=== PATIENT | female | born 1955 | race Caucasian/White ===

== ENCOUNTER 2018-08-23 02:16 | Inpatient (IN) ==
[2018-08-23] MEDS ORDERED: IOPAMIDOL 100 ML BOTTLE IV ONE (02:17)
[2018-08-23] MEDS ORDERED: LACTATED RINGERS 1,000 ML IV ONE (02:25)
[2018-08-23] MEDS ORDERED: ONDANSETRON 4 MG/2 ML VIAL IV ONE (02:25)
[2018-08-23] MEDS: HYDROmorphone 2 MG/ML VIAL IV PRN ×8 (03:05→22:54)
[2018-08-23 03:35] LABS: Basophils # (Auto) 0 K/mcL (0.0-0.3); Basophils % (Auto) 0 % (0.0-2.0); Eosinophils # (Auto) 0.1 K/mcL (0.0-0.7); Eosinophils % (Auto) 0.6 % (0.0-7.0); Granulocytes % (Auto) 82.3 % (38.0-78.0); Lymphocytes # (Auto) 1.8 K/mcL (1.5-4.8); Lymphocytes % (Auto) 12.1 % (15.5-49.0); Mean Cell Volume 81.4 fL (80.0-100.0); Mean Corpuscular Hemoglobin 26.1 pg (26.0-34.0); Monocytes # (Auto) 0.8 K/mcL (0.1-0.9); Platelet Count 397 K/mcL (140-440); Red Cell Distribution Width 15.6 % (11.5-14.5)
[2018-08-23 03:52] LABS: ALT/SGPT 287 U/l (0-40); Albumin 3.5 gm/dL (3.2-5.2); Albumin/Globulin Ratio 0.9 (1.0-2.3); Alkaline Phosphatase 730 U/L (39-117); Blood Urea Nitrogen 8 mg/dl (6-20)
[2018-08-23 05:04] LABS: Appearance,Urine HAZY; Bacteria,Urine FEW /hpf (0); Bilirubin,Urine NEG (NEG); Color,Urine YELLOW; Glucose,Urine (UA) NEGATIVE (NEG); Leukocyte Esterase,Urine NEG /uL (NEG); Protein,Urine NEG (NEG); Specific Gravity,Urine 1.008 (1.000-1.035); Urine Blood NEG mg/dL (<0.03); Urine RBC 2 /hpf (0-1); Urine Squamous Epithelial Cell < 1 /hpf (0-4); Urine Transitional Epi Cells < 1 /hpf (0-2); Urine WBC < 1 /hpf (0-4); Urobilinogen,Urine NEG (NEG)
--- NOTE | 2018-08-23 06:32 | Emergency Department Note ---
Abdominal Pain HPI - General Chief Complaint: Abdominal Pain Stated Complaint: abdominal pain Time Seen by Provider: 08/23/18 02:56 Source: patient Mode of arrival: ambulatory Limitations: no limitations - History of Present Illness HPI Narrative: This patient started taking doxycycline for a diagnosis of pneumonia last Monday. Since that time she has had some abdominal discomfort and bloating and thought maybe she was constipated but her discomfort really is in the epigastric upper abdominal area. Slight nausea. She thinks that the antibiotic may be upsetting her stomach. - Related Data Home Medications Medication Instructions Recorded Confirmed Loratadine [Claritin] 10 mg PO DAILY 07/12/16 07/12/16 lorazepam 1 mg tablet 0.5 mg PO BID-TID PRN 08/17/18 08/17/18 omeprazole 20 mg capsule,delayed 20 mg PO QDAY 08/17/18 08/17/18 release trazodone 50 mg tablet 50 mg PO QDAY 08/17/18 08/17/18 Previous Rx's Medication Instructions Recorded doxycycline hyclate 100 mg tablet 100 mg PO bid 10 Days #20 tab 08/17/18 Allergies Allergy/AdvReac Type Severity Reaction Status Date / Time Sulfa (Sulfonamide Allergy Intermediate VOMITING Verified 08/23/18 02:19 Antibiotics) [SULFA (SULFONAMIDE ANTIBIOTICS)] Review of Systems All systems ED: reviewed and negative except as stated. Abdominal Pain PMH - Past Medical History [facility] Narrative: Medical History (Last Reviewed 08/17/18 @ 15:24 by KAZ Jones) Bee sting reaction (Acute) Cellulitis (Acute) Medical history: Reports: other (seasonal allergies) - Social History Smoking status: Never smoker Physical Exam Limitations: no limitations General appearance: alert Head: atraumatic Eye: Present: normal appearance ENT: normal exam Neck: Present: normal inspection Chest: Present: normal inspection Respiratory: Present: normal lung sounds bilaterally Cardiovascular: Present: regular rate, normal rhythm, normal heart sounds Abdominal: Present: soft, tenderness, normal bowel sounds. Absent: distention, guarding, rebound, rigidity Abdominal tenderness: Present: epigastrium Neurological: Present: alert Psychiatric: Present: normal affect, normal mood Skin: Present: warm, dry, intact Course Vital Signs Temperature 97.0 F 08/23/18 02:16 Pulse Rate 87 08/23/18 02:16 Respiratory Rate 18 08/23/18 02:16 Blood Pressure 146/72 08/23/18 02:16 Pulse Oximetry (%) 98 08/23/18 02:16 Temperature 97.0 F 08/23/18 02:16 Pulse Rate 74 08/23/18 06:18 Respiratory Rate 18 08/23/18 02:16 Blood Pressure 144/78 08/23/18 06:18 Pulse Oximetry (%) 100 08/23/18 06:18 Abdominal Pain - MDM Narrative Medical decision making narrative: This patient has gallstone pancreatitis with severe cholecystitis and evidence of cholangitis with a common bile duct stone. I discussed the case with Dr. Lara who will do ERCP later this afternoon. Dr. Hutchinson will admit the patient. Dr. Reyes a surgeon will consult. Patient is given Levaquin and Zosyn. Also fluid hydration. She is reasonably comfortable. Vital signs have been stable. She will be admitted to the medicine floor. - Lab Data Lab results reviewed: Yes I reviewed the patient's lab results. Result diagrams: 08/23/18 02:50 08/23/18 02:50 Lab Results 08/23/18 08/23/18 08/23/18 Range/Units 02:50 02:50 02:50 WBC 15.2 H (4.5-11.0) K/mcL RBC 4.60 (4.00-5.20) M/mcL Hgb 12.0 (12.0-15.0) g/dL Hct 37.4 (36.0-48.0) % MCV 81.4 (80.0-100.0) fL MCH 26.1 (26.0-34.0) pg MCHC 32.0 (31.0-36.0) g/dL RDW 15.6 H (11.5-14.5) % Plt Count 397 (140-440) K/mcL MPV 9.3 (7.4-10.4) fL Gran % 82.3 H (38.0-78.0) % Lymph % (Auto) 12.1 L (15.5-49.0) % [place] % (Auto) 5.0 (1.0-12.0) % Eos % (Auto) 0.6 (0.0-7.0) % Baso % (Auto) 0 (0.0-2.0) % Gran # 12.5 H (1.8-8.0) K/mcL Lymph # (Auto) 1.8 (1.5-4.8) K/mcL [place] # (Auto) 0.8 (0.1-0.9) K/mcL Eos # (Auto) 0.1 (0.0-0.7) K/mcL Baso # (Auto) 0 (0.0-0.3) K/mcL Sodium 139 (133-145) mmol/L Potassium 4.0 (3.3-5.1) mmol/L Chloride 100 (96-108) mmol/L Carbon Dioxide 24 (22-30) mmol/L Anion Gap 15.0 (8-16) BUN 8 (6-20) mg/dl Creatinine 0.7 (0.6-1.1) mg/dl GFR Calculation 94 Glucose 156 H (70-105) mg/dL Calcium 8.9 (8.6-10.4) mg/dl Total Bilirubin 1.8 H (0.0-1.0) mg/dL AST 260 H (0-37) U/l ALT 287 H (0-40) U/l Alkaline Phosphatase 730 H (39-117) U/L Total Protein 7.2 (5.9-8.4) gm/dL Albumin 3.5 (3.2-5.2) gm/dL Globulin 3.7 (2.2-3.7) gm/dL Albumin/Globulin Ratio 0.9 L (1.0-2.3) Lipase 94661 H (7-60) U/L Urine Color Urine Appearance Urine pH (5.0-9.0) Ur Specific [place] (1.000-1.035) Urine Protein (NEG) mg/dL Urine Glucose (UA) (NEG) mg/dL Urine Ketones (NEG) mg/dL Urine Occult Blood (<0.03) mg/dL Urine Nitrate (NEG) Urine Bilirubin (NEG) mg/dL Urine Urobilinogen (NEG) mg/dL Ur Leukocyte Esterase (NEG) /uL Urine RBC (0-1) /hpf Urine WBC (0-4) /hpf Ur Squamous Epith Cells (0-4) /hpf Ur Transition Epith Cell (0-2) /hpf Urine Bacteria (0) /hpf Ur Culture Indicated? 08/23/18 Range/Units 04:22 WBC (4.5-11.0) K/mcL RBC (4.00-5.20) M/mcL Hgb (12.0-15.0) g/dL Hct (36.0-48.0) % MCV (80.0-100.0) fL MCH (26.0-34.0) pg MCHC (31.0-36.0) g/dL RDW (11.5-14.5) % Plt Count (140-440) K/mcL MPV (7.4-10.4) fL Gran % (38.0-78.0) % Lymph % (Auto) (15.5-49.0) % [place] % (Auto) (1.0-12.0) % Eos % (Auto) (0.0-7.0) % Baso % (Auto) (0.0-2.0) % Gran # (1.8-8.0) K/mcL Lymph # (Auto) (1.5-4.8) K/mcL [place] # (Auto) (0.1-0.9) K/mcL Eos # (Auto) (0.0-0.7) K/mcL Baso # (Auto) (0.0-0.3) K/mcL Sodium (133-145) mmol/L Potassium (3.3-5.1) mmol/L Chloride (96-108) mmol/L Carbon Dioxide (22-30) mmol/L Anion Gap (8-16) BUN (6-20) mg/dl Creatinine (0.6-1.1) mg/dl GFR Calculation Glucose (70-105) mg/dL Calcium (8.6-10.4) mg/dl Total Bilirubin (0.0-1.0) mg/dL AST (0-37) U/l ALT (0-40) U/l Alkaline Phosphatase (39-117) U/L Total Protein (5.9-8.4) gm/dL Albumin (3.2-5.2) gm/dL Globulin (2.2-3.7) gm/dL Albumin/Globulin Ratio (1.0-2.3) Lipase (7-60) U/L Urine Color Yellow Urine Appearance Hazy Urine pH 7.0 (5.0-9.0) Ur Specific [place] 1.008 (1.000-1.035) Urine Protein Neg (NEG) mg/dL Urine Glucose (UA) Negative (NEG) mg/dL Urine Ketones 5/tr A (NEG) mg/dL Urine Occult Blood Neg (<0.03) mg/dL Urine Nitrate Neg (NEG) Urine Bilirubin Neg (NEG) mg/dL Urine Urobilinogen Neg (NEG) mg/dL Ur Leukocyte Esterase Neg (NEG) /uL Urine RBC 2 H (0-1) /hpf Urine WBC < 1 (0-4) /hpf Ur Squamous Epith Cells < 1 (0-4) /hpf Ur Transition Epith Cell < 1 (0-2) /hpf Urine Bacteria Few A (0) /hpf Ur Culture Indicated? Yes - Radiology Data Radiology results reviewed: Yes I reviewed the patient's radiology results. Disposition Pt seen by PUBLIC RELATIONS COORDINATOR/PA only: No Clinical Impression: Gallstone pancreatitis, Acute cholecystitis, Cholangitis, Common bile duct stone Disposition: Xfer As Inpt ([facility]) Condition: Good Referrals: Tere Edouard [Primary Care Provider] - Time of Disposition: 07:01
[2018-08-23] MEDS ORDERED: PIPERACILLIN SODIUM/TAZOBACTAM 3.375 GM in DEXTROSE 5% IN WATER 50 ML IV ONE (06:33)
[2018-08-23] MEDS ORDERED: LEVOFLOXACIN 750 MG/150 ML BAG IV ONE (06:33)
--- NOTE | 2018-08-23 08:02 | Internal Med History&Physical ---
Medical - H&P: HPI Patient information: Note initiated : 08/23/18 at 8:00 am Service Date, if different from initiated Date: [] Patient: Ciara Del Toro 62 y/o F admitted on for Abd Pain. Chief Complaint: [] History of present illness: Ms. Del Toro is a 62 year old F with h/o anxiety, Ca breast, presents to the ER with complaints of abdominal pain. The patients symptoms started last monday, with fever, nausea and vomiting, decreased appetite. The patient nausea and vomiting somewhat improved but her food aversion was persistent. She was seen last Monday, in the urgent care setting for fever, had a Chest x ray done, and was noted to have possible right basilar infiltrate vs atelectasis. The patient was started on doxycycline. The patients symptoms worsened after the initiation of antibiotics. The patient had nausea, vmoiting, epigastric distress since initiation which has progressively worsened since then. She attributed the worsening of symptoms to the initiation of antibiotics The patient has had decreased po intake and had some weakness and dizziness. The patient last night ate supper and her pain became more severe, and did not subside, she eventually came to the ER for further management. In the ER the patient was noted to be afebrile 97, HR 72, BP 138/70, 99 on RA WBC 15, Hb 12, K 4.0, Creat 0.8, Glucose 156 T nette 1.8, AST 287, ALT 260, Alk phos 730, LIpase [id number] The patient had a CT done which shows dilated cbc, cholecystitis. official report pending. Patient is being admitted to the hospital for acute cholangitis, acute pancreatitis. All systems: reviewed and no additional remarkable complaints except as stated ( as per HPI rest neg) Medical - H&P: PMH Medical history: Medical History (Last Reviewed 08/17/18 @ 15:24 by KAZ Jones) Bee sting reaction (Acute) Cellulitis (Acute) anxiety ca breast Surgical history: hystrectomy mastectomy tonsillectomy port placement/ removal Pertinent family history: mother/father with DM Social history: social etoh in past denies tobacco or substance abuse. Medical - H&P: Meds Home Medications Medication Instructions Recorded Confirmed Type Loratadine [Claritin] 10 mg PO DAILY 07/12/16 08/23/18 History doxycycline hyclate 100 mg tablet 100 mg PO bid 10 Days #20 tab 08/17/18 Rx lorazepam 1 mg tablet 0.5 mg PO BID-TID PRN 08/17/18 08/23/18 History omeprazole 20 mg capsule,delayed 20 mg PO QDAY 08/17/18 08/23/18 History release trazodone 50 mg tablet 50 mg PO QDAY 08/17/18 08/23/18 History Allergies Allergy/AdvReac Type Severity Reaction Status Date / Time Sulfa (Sulfonamide Allergy Intermediate VOMITING Verified 08/23/18 02:19 Antibiotics) [SULFA (SULFONAMIDE ANTIBIOTICS)] Medical - H&P: Exam - Constitutional Vitals: Temp Pulse Resp BP Pulse Ox 97.0 F 96 H 18 160/81 100 08/23/18 02:16 08/23/18 07:30 08/23/18 02:16 08/23/18 07:31 08/23/18 07:30 Exam: GENERAL: The patient is a well-developed, well-nourished in no apparent distress. Is alert and oriented x3. VITAL SIGNS: Reviewed and as noted elsewhere. HEENT: Head is normocephalic and atraumatic. Extraocular muscles are intact. Pupils are equal, round, and reactive to light. Nares appeared normal. Mouth appears any without lesions. Mucous membranes are moist. NECK: Normal to inspection, Supple, No lymphadenopathy or thyromegaly. LUNGS: Air entry equal on both sides, no wheezing, crackles or rhonchi noted. No accessory muscles of respiration HEART: Regular rate and rhythm normal, S1 and S2 heard, no Gallop, S3 or Rub Noted, No Gross murmur heard. ABDOMEN: Soft, present epigastric tenderness, also RUQ tenderness, nondistended. Positive bowel sounds. No hepatosplenomegaly was noted. EXTREMITIES: No cyanosis, clubbing, rash, lesions or edema. NEUROLOGIC: Cranial nerves II through XII are grossly intact. Motor and Sensory System Grossly Intact PSYCHIATRIC: Normal affect, Normal Mood. Appropriate Behavior. SKIN: No ulceration or wounds noted, No jaundice, No rash noted. Medical - H&P: Reslt - Labs CBC & Chem 7: 08/23/18 02:50 08/23/18 02:50 Labs: Short CBC 08/23/18 Range/Units 02:50 WBC 15.2 H (4.5-11.0) K/mcL Hgb 12.0 (12.0-15.0) g/dL Hct 37.4 (36.0-48.0) % Plt Count 397 (140-440) K/mcL BMP 08/23/18 02:50 Sodium 139 Potassium 4.0 Chloride 100 Carbon Dioxide 24 BUN 8 Creatinine 0.7 Glucose 156 H Calcium 8.9 Liver Function 08/23/18 Range/Units 02:50 Total Bilirubin 1.8 H (0.0-1.0) mg/dL AST 260 H (0-37) U/l ALT 287 H (0-40) U/l Alkaline Phosphatase 730 H (39-117) U/L Albumin 3.5 (3.2-5.2) gm/dL Urine 08/23/18 Range/Units 04:22 Urine Color Yellow Urine Appearance Hazy Urine pH 7.0 (5.0-9.0) Ur Specific [place] 1.008 (1.000-1.035) Urine Protein Neg (NEG) mg/dL Urine Glucose (UA) Negative (NEG) mg/dL Medical - H&P: A/P - Narrative A/P Narrative: A/P Acute Cholangitis Acute cholecystitis Acute pancreatitis Anxiety CA breast/ s/p chemo Plan admit to med sug IV zosyn GI and SUrgery consulted, Planned ERCP this afternoon IV fluids NPO for now IV dilaudid for pain management trend labs DVT hep sq Diet npo Full code.
--- NOTE | 2018-08-23 08:04 | Cat Scan Report ---
CLINICAL INFORMATION: Abdominal pain with elevated serum lipase level COMPARISON: None. TECHNIQUE: Following injection of intravenous contrast the patient was scanned during the portal venous phase from the diaphragm through the symphysis pubis. Sagittal and coronal reformats were created.. The radiation exposure was limited using dose reduction technology FINDINGS: Right breast is surgically absent. There is scar tissue in the underlying 6 no pulmonary masses seen. There is moderate size hiatus hernia. Liver is normal in size. There is moderate dilatation of the intra and extrahepatic bile ducts. The common hepatic duct measures up to 11 mm. There may be a 1 mm stone at the ampulla. The gallbladder wall is abnormally thickened and edematous. It measures up to 8 mm. There are several small stones in the neck of the gallbladder. No abscess is present and there is no ascites. The pancreas is normal without evidence of inflammation in the duct is nondilated. There is a 1 cm duodenal diverticulum along the medial side of the second portion, contiguous with the distal common bile duct. This is not causing mass effect upon the duct. The spleen, adrenals and kidneys are normal. The bowel gas pattern is normal. There is no diverticulitis obstruction or ileus. The appendix is not clearly identified. The uterus is surgically absent. Neither ovary is identified. Severe disc space narrowing is present at L4-5 and L5-S1. There are posterior bulges and spurs at those two levels and gas and nucleus pulposus due to degeneration. IMPRESSION: Cholelithiasis and cholecystitis 1 mm stone at the ampulla, causing obstruction of the bile ducts. Normal pancreas No evidence of metastasis Interpreted and Authenticated by: Dwayne Delarosa 08/23/18
--- NOTE | 2018-08-23 08:27 | XRay Report ---
HISTORY: Abdominal pain and constipation Right diaphragm is mildly elevated. No free intra-abdominal air is present. The bowel gas pattern is normal and there is no evidence of fecal impaction. No kidney stone is seen. IMPRESSION: Normal exam Interpreted and Authenticated by: Dwayne Delarosa 08/23/18
[2018-08-23] MEDS ORDERED: NALOXONE HCL 0.4 MG/ML VIAL IV PRN (08:48)
[2018-08-23] MEDS ORDERED: oxyCODONE/APAP 5/325MG TABLET PO PRN (08:48)
[2018-08-23] MEDS ORDERED: HEPARIN 5,000 UNIT/ML VIAL SQ SCH (09:00)
[2018-08-23] MEDS: FAMOTIDINE/PF 20 MG/2 ML VIAL IV SCH ×2 (09:22→20:13)
[2018-08-23] MEDS: DEXTROSE 5%-1/2NS W/20MEQ KCL 1,000 ML IV SCH ×2 (10:34→21:56)
[2018-08-23] MEDS: ONDANSETRON 4 MG/2 ML VIAL IV PRN ×4 (10:47→23:47)
[2018-08-23 10:59] LABS: Amylase 2249 U/L (28-100)
[2018-08-23 11:00] LABS: Lipase 4640 U/L (7-60)
[2018-08-23] MEDS: PIPERACILLIN SODIUM/TAZOBACTAM 3.375 GM in DEXTROSE 5% IN WATER 50 ML IV SCH ×3 (11:38→23:45)
[2018-08-23] MEDS: 0.9 % SODIUM CHLORIDE 10 ML SYRINGE IV SCH ×2 (13:16→20:13)
[2018-08-23] MEDS ORDERED: PROPOFOL 200 MG/20 ML VIAL IV ONE (14:24)
[2018-08-23] MEDS ORDERED: MIDAZOLAM 2 MG/2 ML VIAL IV ONE (14:25)
[2018-08-23] MEDS ORDERED: PROPOFOL 20 ML IV ONE ×2 (16:46)
[2018-08-23] MEDS ORDERED: MIDAZOLAM 2 MG/2 ML VIAL ONE (16:46)
[2018-08-23] MEDS ORDERED: GLUCAGON,HUMAN RECOMBINANT 1 MG VIAL IV ONE (17:15)
[2018-08-23] MEDS ORDERED: IOPAMIDOL 100 ML BOTTLE IJ ONE (17:35)
--- NOTE | 2018-08-23 20:07 | Consultation ---
DATE OF CONSULTATION: 08/23/2018 CHIEF COMPLAINT: Ms. Ozuna is seen in consultation at the request of Dr. Holm in the ER for cholelithiasis and choledocholithiasis. HISTORY OF PRESENT ILLNESS: Ms. Ozuna is a 62-year-old woman, who presented to the emergency department with complaints of abdominal pain that has been progressive throughout the week. The patient states that recently she was diagnosed with pneumonia last Monday and was started on doxycycline. Shortly after starting that medication, she developed some nausea and thought this was related to the antibiotics. This sense of nausea seemed to persist, and she started to have some discomfort in her mid epigastric area which seemed to progress throughout the week. By last night, she found that her pain was quite severe, which she rated as a 9.5 out of 10 in severity. She primarily was having pain in the midepigastric area and states that she could not find a comfortable position no matter how much she tried. She did have 5 episodes of emesis which was first consisting of dinner that she just ate last night and then subsequently just clear liquid. Throughout the week when she was starting to develop this discomfort, she noted that eating made the pain worse, and she has not had much to eat over the past week. She also reports having an episode of dark urine about a week ago. She denies any episodes of diarrhea. She denies having pain like this before. She does have a history of Schatzki's ring and a hiatal hernia diagnosed in January during evaluation for dysphagia, but no pain like this previously. PAST MEDICAL HISTORY: Significant for: 1. Stage III breast carcinoma diagnosed 2 years ago, treated with a right modified radical mastectomy and chemotherapy. 2. Hiatal hernia and Schatzki's ring as per above. 3. Seasonal allergies. 4. History of shingles. REVIEW OF SYSTEMS: CONSTITUTIONAL: She denies fever or chills. CARDIOVASCULAR: Denies chest pain or pressure at rest or with exertion. PULMONARY: Recent diagnosis of pneumonia as per HPI. No current cough noted. ENDOCRINE: Denies any history of diabetes mellitus or thyroid disease. HEMATOLOGIC: Denies any history of DVT or PE. She reports a history of a prior blood transfusion at the time of hysterectomy which was performed for fibroids. The patient denies any history of anesthetic complications. FAMILY HISTORY: Significant for myocardial infarction and stroke in her father at age 47. She also reports family history of diabetes mellitus in both parents. ALLERGIES: SULFA, ADHESIVE FROM TAPE, BEE STINGS. SOCIAL HISTORY: The patient denies tobacco use. Denies any illegal or recreational drug use. Reports prior occasional alcohol intake. PHYSICAL EXAMINATION: VITAL SIGNS: Temperature 97.0, pulse 96, respirations 18, blood pressure 160/81, O2 saturations 100% on room air. GENERAL: Ms. Del Toro is a well-developed, well-nourished woman, who appears her stated age in no distress. HEENT: Head is normocephalic. Sclerae are white. Mucous membranes are moist. CHEST: Breath sounds are clear to auscultation bilaterally. No rales or wheezes are heard in the upper or lower cooper. No use of accessory respiratory muscles. CARDIOVASCULAR: Reveals regular rate and rhythm. ABDOMEN: Soft, moderately obese. There is tenderness in the right upper abdomen and in the midepigastric area. The patient has been medicated for pain prior to this evaluation. No rebound tenderness or guarding noted on exam. EXTREMITIES: No cyanosis or edema. NEUROLOGIC: The patient is alert and oriented to person, place, time, and circumstance. Her cranial nerves II-XII are grossly intact. LABS AND STUDIES: CBC drawn in the Emergency Department shows white blood cell count elevated at 15.2, hemoglobin is 12.0, hematocrit is 37.4, and platelets are 397. There is a left shift of 82.3% granulocytes. Serum chemistry shows sodium of 139, potassium 4.0, chloride 100, CO2 of 24, BUN 8, creatinine 0.7, glucose 156, total bilirubin is elevated at 1.8, AST 260, ALT 287, alkaline phosphatase 730. Albumin 3.5. Lipase is elevated at 12,100. A CT scan of the abdomen and pelvis was performed in the Emergency Department. I reviewed the images and reports from the scan. Significant findings include moderate dilatation of the intra and extrahepatic bile ducts with the common hepatic duct measuring up to 11 mm. There is thought to be a 1 mm stone at the ampulla. Gallbladder wall was abnormally thickened and edematous. It measures up to 8 mm. Multiple stones in the neck of the gallbladder are noted. ASSESSMENT AND PLAN: Gallstone pancreatitis and choledocholithiasis. The patient is admitted to medicine service, and GI consultation has been obtained for consideration of ERCP. Once pancreatitis has resolved, we will discuss cholecystectomy for management of the symptomatic gallstones. RC:wan Job ID: [id number] Doc ID: [id number] Leeann Reyes MD
[2018-08-24] MEDS: DEXTROSE 5%-1/2NS W/20MEQ KCL 1,000 ML IV SCH ×3 (01:39→22:18)
[2018-08-24] MEDS: 0.9 % SODIUM CHLORIDE 10 ML SYRINGE IV SCH ×3 (05:49→21:28)
[2018-08-24] MEDS: PIPERACILLIN SODIUM/TAZOBACTAM 3.375 GM in DEXTROSE 5% IN WATER 50 ML IV SCH ×4 (05:49→23:46)
[2018-08-24] MEDS: HYDROmorphone 2 MG/ML VIAL IV PRN ×3 (05:55→21:27)
[2018-08-24 06:38] LABS: Basophils # (Auto) 0 K/mcL (0.0-0.3); Basophils % (Auto) 0 % (0.0-2.0); Eosinophils # (Auto) 0 K/mcL (0.0-0.7); Eosinophils % (Auto) 0.3 % (0.0-7.0); Granulocytes % (Auto) 80.5 % (38.0-78.0); Lymphocytes # (Auto) 1.6 K/mcL (1.5-4.8); Lymphocytes % (Auto) 11.7 % (15.5-49.0); Mean Cell Volume 82.5 fL (80.0-100.0); Mean Corpuscular HGB Conc 32.3 g/dL (31.0-36.0); Mean Corpuscular Hemoglobin 26.7 pg (26.0-34.0); Monocytes % (Auto) 7.5 % (1.0-12.0); Platelet Count 389 K/mcL (140-440); RBC 4.46 M/mcL (4.00-5.20)
[2018-08-24 06:39] LABS: Amylase 1122 U/L (28-100)
[2018-08-24 06:52] LABS: ALT/SGPT 332 U/l (0-40); Albumin 3.2 gm/dL (3.2-5.2); Albumin/Globulin Ratio 0.9 (1.0-2.3); Alkaline Phosphatase 813 U/L (39-117); Bilirubin,Direct 2.4 mg/dL (0.0-0.3); Blood Urea Nitrogen 7 mg/dl (6-20); Gamma Glutamyl Transpeptidase 346 U/L (5-36); Lipase 1429 U/L (7-60); Uric Acid 1.3 mg/dL (2.5-8.0)
--- NOTE | 2018-08-24 07:44 | Operative Note ---
DATE OF OPERATION: 08/23/2018 PROCEDURE: ERCP with sphincterotomy and balloon extraction of small stone fragments. SENIOR LITIGATION PARALEGAL AND MANAGER APPLICATION DEVELOPMENT: Lio Vallecillo MD ANESTHETIC USED: Propofol 160 mg IV, Versed 2 mg IV, glucagon 1 mg IV. PREOPERATIVE DIAGNOSIS: A 62-year-old white female known to me I believe from having reflux or a Schatzki's ring dilated several months or maybe a year ago. She has a history of breast cancer as well. In the last 10 days; however, she has been having intermittent abdominal pain and fever. This has been alternately attributed to, at first a flu and then later her postprandial abdominal pain was being attributed to use of antibiotics, I believe doxycycline. Finally; however, during the early intervention school psychologist hours earlier today, patient came to the emergency room with severe abdominal pain. She was found to have elevated liver chemistries and pancreatitis; also CAT scan findings of gallstones and even very small common bile duct stone or stones. POSTOPERATIVE DIAGNOSIS: Tiny stone fragments, removed from common bile duct via sphincterotomy as described below. INFORMED CONSENT: Prior to the procedure the patient provided her own informed consent. The patient was evaluated and considered medically fit for endoscopy. DESCRIPTION OF PROCEDURE: With the patient in the semi-prone position under a fluoroscope, a side-viewing duodenoscope was advanced via the mouth to the esophagus under direct vision. The scope was advanced without difficulty to the second portion of the duodenum where a normal-appearing ampulla was identified. I will say, however, that the ampulla did appear maybe to be a little bit bulging. There was no purulent material coming through the ampullary orifice. Selective cannulation of the common bile duct was achieved immediately by a wire-guided technique. Cholangiogram then was performed. This shows that the cystic duct is at least partially patent. The common bile duct does not appear to be enlarged or dilated. I was suspicious of a small filling defect or two at the distal common bile duct. This was certainly not obvious but with the CAT scan findings I decided to perform a small sphincterotomy. This was done with a little bit of bleeding, probably 2 to 3 mL of blood total. I used 9 through 12 mm balloon inflated to 10 mm but not at the sphincterotomy site and the bleeding stopped. I swept the common bile duct with a 12 mm balloon and only little fragments of stones were delivered to the small bowel. I swept the duct two more times and did not see any further convincing evidence of any remaining fragments. An occlusion cholangiogram was obtained and this does not demonstrate any obvious retained filling defects. COMPLICATIONS: None immediate. RECOMMENDATIONS: Would proceed to cholecystectomy when the pancreatitis subsides. For now, continue treatment for pancreatitis with IV fluids, pain meds, and nausea medicine as needed, etc. [email or web address] Job ID: [id number] Doc ID: [id number] Lio HORNE
--- NOTE | 2018-08-24 08:55 | General Surgery Progress Note ---
Surgical - Auxillary Note - Subjective Patient Information: Note initiated : 08/24/18 at 8:55 am Service Date, if different from initiated Date: [] Patient: Ciara Del Toro 62 y/o F admitted on 08/23/18 for Abd Pain. Chief Complaint: [] Patient resting in bed. Reports pain in mid epigastric region--less than yesterday. Denies nausea or emesis. ERCP done yesterday with sphincterotomy. Vital Signs Temp Pulse Resp BP Pulse Ox 98.2 F 73 18 110/72 93 08/24/18 07:08 08/24/18 04:00 08/24/18 07:08 08/24/18 07:08 08/24/18 07:08 Period Temp Pulse Resp BP Sys/Barnes Pulse Ox Last 24 Hr 96.9 F-98.3 F 70-98 14-20 103-198/58-108 93-100 Intake and Output 08/23/18 08/24/18 08/24/18 21:59 05:59 13:59 Intake Total 50 / 50 1050 / 1050 Output Total 700 / 700 450 / 450 Balance -650 / -650 600 / 600 Weight 181 lb 14.4 oz PE: Patient resting in bed. No distress. Chest: clear bilaterally. No rales or wheezes CV: regular rhythm and rate ABD: Soft, tender in midepigastric area--mostly unchanged. No guarding or rebound. EXT: warm, no edema. Laboratory Results - last 24 hr 08/23/18 08/24/18 08/24/18 09:23 05:28 05:28 WBC 13.7 H RBC 4.46 Hgb 11.9 L Hct 36.8 MCV 82.5 MCH 26.7 MCHC 32.3 RDW 16.0 H Plt Count 389 MPV 9.0 Gran % 80.5 H Lymph % (Auto) 11.7 L Ramsey % (Auto) 7.5 Eos % (Auto) 0.3 Baso % (Auto) 0 Gran # 11.0 H Lymph # (Auto) 1.6 Ramsey # (Auto) 1.0 H Eos # (Auto) 0 Baso # (Auto) 0 Sodium 136 Potassium 3.9 Chloride 99 Carbon Dioxide 25 Anion Gap 12.0 BUN 7 Creatinine 0.6 GFR Calculation 99 Glucose 109 H Uric Acid 1.3 L Calcium 8.9 Phosphorus 2.9 Magnesium 2.1 Total Bilirubin 3.2 H Direct Bilirubin 2.4 H GGT 346 H AST 239 H ALT 332 H Alkaline Phosphatase 813 H Lactate Dehydrogenase 253 H Total Protein 6.8 Albumin 3.2 Globulin 3.6 Albumin/Globulin Ratio 0.9 L Triglycerides 45 Amylase 2249 H Lipase 4640 H 08/24/18 05:28 WBC RBC Hgb Hct MCV MCH MCHC RDW Plt Count MPV Gran % Lymph % (Auto) Ramsey % (Auto) Eos % (Auto) Baso % (Auto) Gran # Lymph # (Auto) Ramsey # (Auto) Eos # (Auto) Baso # (Auto) Sodium Potassium Chloride Carbon Dioxide Anion Gap BUN Creatinine GFR Calculation Glucose Uric Acid Calcium Phosphorus Magnesium Total Bilirubin Direct Bilirubin GGT AST ALT Alkaline Phosphatase Lactate Dehydrogenase Total Protein Albumin Globulin Albumin/Globulin Ratio Triglycerides Amylase 1122 H Lipase 1429 H A/P: Gallstone Pancreatitis w/ choledocholithiasis. S/p ERCP w/ sphincterotomy. Lipase trending down. Bilirubin elevated today. Will re-check levels later today. Await resolution of pancreatitis before cholecystectomy.
--- NOTE | 2018-08-24 08:58 | XRay Report ---
HISTORY: Follow-up recent pneumonia FINDINGS: Right diaphragm is mildly elevated. There are subtle streaky opacities above the right diaphragm. This corresponds with the pleural and parenchymal scarring seen on the abdomen CT done on 08/23/18. This has remained stable since the prior chest x-ray done on 08/17/18. There is no evidence of underlying pneumonia. The left lung is clear. The heart size is normal. A hiatus hernia is again noted. No adenopathy is present. The right breast is absent. No lytic or blastic metastasis are detected. IMPRESSION: Stable mild parenchymal scarring in the right middle lobe and no acute abnormality Interpreted and Authenticated by: Dwayne Delarosa 08/24/18
[2018-08-24] MEDS: FAMOTIDINE/PF 20 MG/2 ML VIAL IV SCH ×2 (09:36→21:27)
[2018-08-24] MEDS ORDERED: PNEUMOCOCCAL 23-VAL P-SAC VAC 0.5 ML VIAL IM ONE (10:00)
[2018-08-24 11:22] LABS: ALT/SGPT 311 U/l (0-40); Albumin 3.2 gm/dL (3.2-5.2); Alkaline Phosphatase 723 U/L (39-117); Bilirubin,Direct 1.1 mg/dL (0.0-0.3)
--- NOTE | 2018-08-24 12:51 | Internal Med Progress Note ---
Medical - PN: Subj Patient information: Note initiated : 08/24/18 at 12:49 pm Service Date, if different from initiated Date: [] Patient: Ciara Del Toro a 62 y/o F admitted on 08/23/18 for Abd Pain. Chief Complaint: [] Interval history: Ms. Del Toro is a 62 year old F with h/o anxiety, Ca breast, presents to the ER with complaints of abdominal pain. The patients symptoms started last monday, with fever, nausea and vomiting, decreased appetite. The patient nausea and vomiting somewhat improved but her food aversion was persistent. She was seen last Monday, in the urgent care setting for fever, had a Chest x ray done, and was noted to have possible right basilar infiltrate vs atelectasis. The patient was started on doxycycline. The patients symptoms worsened after the initiation of antibiotics. The patient had nausea, vmoiting, epigastric distress since initiation which has progressively worsened since then. She attributed the worsening of symptoms to the initiation of antibiotics The patient has had decreased po intake and had some weakness and dizziness. The patient last night ate supper and her pain became more severe, and did not subside, she eventually came to the ER for further management. In the ER the patient was noted to be afebrile 97, HR 72, BP 138/70, 99 on RA WBC 15, Hb 12, K 4.0, Creat 0.8, Glucose 156 T nette 1.8, AST 287, ALT 260, Alk phos 730, LIpase [id number] The patient had a CT done which shows dilated cbc, cholecystitis. official report pending. Patient is being admitted to the hospital for acute cholangitis, acute pancreatitis. 08/24 Patient seen examined no acute ovenright issues s/p ERCP yesterday WBC trending down amylaise lipase trending sathya pt had bump in lft/ t nette this AM, but is down a bit on recheck Clinically stable at this point, will monitor closely. Pertinent ROS: Denies headache, dizziness Denies chest pain, palpitations Denies cough or shortness of breath abdominal pain is there but improved - Constitutional Vitals: Vital Signs Temp Pulse Resp BP Pulse Ox 98.2 F 75 16 125/85 95 08/24/18 11:16 08/24/18 07:55 08/24/18 11:16 08/24/18 11:16 08/24/18 11:16 Period Temp Pulse Resp BP Sys/Barnes Pulse Ox Last 24 Hr 96.9 F-98.3 F 70-98 14-20 104-198/58-108 93-100 Intake and Output 08/23/18 08/24/18 08/24/18 21:59 05:59 13:59 Intake Total 50 / 50 1050 / 1050 50 / 50 Output Total 700 / 700 450 / 450 Balance -650 / -650 600 / 600 50 / 50 Weight 181 lb 14.4 oz Intake & Output: Intake & Output 08/23/18 08/24/18 08/24/18 21:59 05:59 13:59 Intake Total 50 / 50 1050 / 1050 50 / 50 Output Total 700 / 700 450 / 450 Balance -650 / -650 600 / 600 50 / 50 Weight 181 lb 14.4 oz Intake: IV 50 / 50 1050 / 1050 50 / 50 Dextrose 5%-1/2Ns W/20Meq KCl 1 1000 / 1000 ,000 ml @ 84 mls/hr IV .[id number] [facility] Rx#:[id number] Zosyn 3.375 gm In Dextrose 5% 50 / 50 50 / 50 50 / 50 in Water 50 ml @ 100 mls/hr IV Q6H [facility] Rx#:[id number] Oral 0 / 0 Output: Void Amount 700 / 700 450 / 450 Other: Urine Appearance Clear Clear Urine Color Tea Colored Tea Colored Urine Odor Normal Normal # Voids 1 Exam: Constitutional; Afebrile, cooperative, alert, not in distress. Respiratory system: Air Entry equal on both sides, No crackles or wheezing, no rhonchi. CVS- Rate rhythm regular, S1,S2 heard, no gallop, no rub. 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 Medical - PN: Obj Da - Labs CBC & Chem 7: 08/24/18 05:28 08/24/18 05:28 Labs: Abnormal Lab Results 08/24/18 08/24/18 08/24/18 10:18 05:28 05:28 WBC Hgb RDW Gran % Lymph % (Auto) Gran # Donley # (Auto) Glucose 109 H Uric Acid 1.3 L Total Bilirubin 2.1 H 3.2 H Direct Bilirubin 1.1 H 2.4 H GGT 346 H AST 201 H 239 H ALT 311 H 332 H Alkaline Phosphatase 723 H 813 H Lactate Dehydrogenase 253 H Albumin/Globulin Ratio 0.9 L Amylase 1122 H Lipase 1429 H Urine Ketones Urine RBC Urine Bacteria 08/24/18 08/23/18 08/23/18 05:28 09:23 04:22 WBC 13.7 H Hgb 11.9 L RDW 16.0 H Gran % 80.5 H Lymph % (Auto) 11.7 L Gran # 11.0 H Donley # (Auto) 1.0 H Glucose Uric Acid Total Bilirubin Direct Bilirubin GGT AST ALT Alkaline Phosphatase Lactate Dehydrogenase Albumin/Globulin Ratio Amylase 2249 H Lipase 4640 H Urine Ketones 5/tr A Urine RBC 2 H Urine Bacteria Few A 08/23/18 08/23/18 08/23/18 02:50 02:50 02:50 WBC 15.2 H Hgb RDW 15.6 H Gran % 82.3 H Lymph % (Auto) 12.1 L Gran # 12.5 H Donley # (Auto) Glucose 156 H Uric Acid Total Bilirubin 1.8 H Direct Bilirubin GGT AST 260 H ALT 287 H Alkaline Phosphatase 730 H Lactate Dehydrogenase Albumin/Globulin Ratio 0.9 L Amylase Lipase 20310 H Urine Ketones Urine RBC Urine Bacteria Meds: Medications Famotidine (Pepcid) 20 mg IV Q12 [facility] Last Admin: 08/24/18 09:36 Dose: 20 mg Hydromorphone HCl (Dilaudid) 0.5 mg IV Q2HP PRN PRN Reason: PAIN LEVEL > 6 Last Admin: 08/24/18 11:00 Dose: 0.5 mg Piperacillin Sod/Tazobactam (Sod 3.375 gm/ Dextrose) 50 mls @ 100 mls/hr IV Q6H [facility] Last Admin: 08/24/18 11:41 Dose: 100 mls/hr Potassium Chloride/Dextrose/Sod Cl (Dextrose 5%-1/2ns W/20meq Kcl) 1,000 mls @ 84 mls/hr IV .[id number] [facility] Last Admin: 08/24/18 01:39 Dose: 84 mls/hr Naloxone HCl (Narcan) 0.1 mg IV Q2MIN PRN PRN Reason: Opiate Reversal Ondansetron HCl (Zofran) 4 mg IV Q4HP PRN PRN Reason: Nausea And Vomiting Last Admin: 08/23/18 23:47 Dose: 4 mg Oxycodone/Acetaminophen (Percocet 5-325 Mg) 1 tab PO Q4HP PRN PRN Reason: PAIN LEVEL 3-6 Sodium Chloride (Saline Flush) 10 ml IV Q8 [facility] Last Admin: 08/24/18 05:49 Dose: Not Given Medical - PN: A/P - Time Spent With Patient Total time spent is greater than 50% in coordination of care (as documented) at patient's floor/unit and/or counseling patient: - Narrative A/P Narrative: A/P Acute Cholangitis Acute cholecystitis Acute pancreatitis Anxiety CA breast/ s/p chemo abnormal liver function test Plan continue to monitor IV zosyn to continue, cultures neg so far GI and SUrgery consulted, s/p ercp, trend LFT, amylase and lipase IV fluids NPO for now IV dilaudid for pain management DVT hep sq Diet npo Full code. Medical - PN: Qual - VTE Deep Vein Thrombosis/Pulmonary Embolism Present on Admission: No
[2018-08-25] MEDS: HYDROmorphone 2 MG/ML VIAL IV PRN ×3 (03:25→22:22)
[2018-08-25] MEDS: 0.9 % SODIUM CHLORIDE 10 ML SYRINGE IV SCH ×3 (05:34→21:16)
[2018-08-25] MEDS: PIPERACILLIN SODIUM/TAZOBACTAM 3.375 GM in DEXTROSE 5% IN WATER 50 ML IV SCH ×3 (05:34→23:45)
[2018-08-25 06:36] LABS: Basophils # (Auto) 0 K/mcL (0.0-0.3); Basophils % (Auto) 0.1 % (0.0-2.0); Eosinophils # (Auto) 0.1 K/mcL (0.0-0.7); Eosinophils % (Auto) 0.6 % (0.0-7.0); Lymphocytes # (Auto) 1.5 K/mcL (1.5-4.8); Lymphocytes % (Auto) 9.4 % (15.5-49.0); Mean Cell Volume 82.1 fL (80.0-100.0); Mean Corpuscular HGB Conc 32.8 g/dL (31.0-36.0); Mean Corpuscular Hemoglobin 26.9 pg (26.0-34.0); Monocytes # (Auto) 1.1 K/mcL (0.1-0.9); Monocytes % (Auto) 6.9 % (1.0-12.0); Platelet Count 346 K/mcL (140-440); RBC 3.98 M/mcL (4.00-5.20); Red Cell Distribution Width 15.9 % (11.5-14.5)
[2018-08-25 07:04] LABS: Amylase 137 U/L (28-100); Lipase 92 U/L (7-60)
[2018-08-25 07:17] LABS: ALT/SGPT 212 U/l (0-40); Albumin 2.6 gm/dL (3.2-5.2); Albumin/Globulin Ratio 0.8 (1.0-2.3); Alkaline Phosphatase 580 U/L (39-117); Bilirubin,Direct 0.5 mg/dL (0.0-0.3); Blood Urea Nitrogen 9 mg/dl (6-20); Gamma Glutamyl Transpeptidase 230 U/L (5-36); Uric Acid 1.5 mg/dL (2.5-8.0)
[2018-08-25] MEDS: FAMOTIDINE/PF 20 MG/2 ML VIAL IV SCH ×2 (08:41→21:43)
[2018-08-25] MEDS: ONDANSETRON 4 MG/2 ML VIAL IV PRN (08:42)
--- NOTE | 2018-08-25 09:48 | General Surgery Progress Note ---
Surgical - Auxillary Note - Subjective Patient Information: Note initiated : 08/25/18 at 9:33 am Service Date, if different from initiated Date: [] Patient: Ciara Del Toro 62 y/o F admitted on 08/23/18 for Abd Pain. Chief Complaint: [] Patient resting in bed. Reports pain is better. 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 Reports some mild nausea which she says is related to not eating and not feeling like she needs to vomit. Passed some flatus yesterday. Vital Signs Temp Pulse Resp BP Pulse Ox 97.3 F 78 16 101/64 95 08/25/18 07:05 08/25/18 04:00 08/25/18 07:05 08/25/18 07:05 08/25/18 07:05 Period Temp Pulse Resp BP Sys/Barnes Pulse Ox Last 24 Hr 97.3 F-98.9 F 72-80 16-18 101-125/55-85 94-96 Intake and Output 08/24/18 08/25/18 08/25/18 21:59 05:59 13:59 Intake Total 1050 / 1050 50 / 50 Output Total 750 / 750 250 / 250 200 / 200 Balance 300 / 300 -200 / -200 -200 / -200 Weight 179 lb PE: No distress. Chest: clear bilaterally. No accessory muscle use. CV: regular rate and rhythm ABD: soft, non distended. Mild midepigastric tenderness--continues to improve. No RUQ tenderness. No guarding or rebound EXT: warm, no edema. CBC and Chem 7 08/25/18 05:10 08/25/18 05:10 LFTs trending down. Tbili: 1.3 Dbili 0.5 Lipase: 92 A/P: Gallstone pancreatitis--resolving. S/p ERCP with sphincterotomy. Laparoscopi Cholecystectomy recommended. Risks benefits and alternatives reviewed with the patient. Risks include but are not limited to bleeding, infection, injury to common bile duct, injury to other organs, risks of general anesthesia and possible need for conversion to open procedure. Patient verbalized understanding of risks of surgery and would like to proceed. Plan Cholecystectomy pending OR scheduling.
--- NOTE | 2018-08-25 11:38 | Internal Med Progress Note ---
Medical - PN: Subj Patient information: Note initiated : 08/25/18 at 11:36 am Service Date, if different from initiated Date: [] Patient: Ciara Del Toro a 62 y/o F admitted on 08/23/18 for Abd Pain. Chief Complaint: [] Interval history: Ms. Del Toro is a 62 year old F with h/o anxiety, Ca breast, presents to the ER with complaints of abdominal pain. The patients symptoms started last monday, with fever, nausea and vomiting, decreased appetite. The patient nausea and vomiting somewhat improved but her food aversion was persistent. She was seen last Monday, in the urgent care setting for fever, had a Chest x ray done, and was noted to have possible right basilar infiltrate vs atelectasis. The patient was started on doxycycline. The patients symptoms worsened after the initiation of antibiotics. The patient had nausea, vmoiting, epigastric distress since initiation which has progressively worsened since then. She attributed the worsening of symptoms to the initiation of antibiotics The patient has had decreased po intake and had some weakness and dizziness. The patient last night ate supper and her pain became more severe, and did not subside, she eventually came to the ER for further management. In the ER the patient was noted to be afebrile 97, HR 72, BP 138/70, 99 on RA WBC 15, Hb 12, K 4.0, Creat 0.8, Glucose 156 T nette 1.8, AST 287, ALT 260, Alk phos 730, LIpase [id number] The patient had a CT done which shows dilated cbc, cholecystitis. official report pending. Patient is being admitted to the hospital for acute cholangitis, acute pancreatitis. 08/24 Patient seen examined no acute ovenright issues s/p ERCP yesterday WBC trending down amylaise lipase trending sathya pt had bump in lft/ t nette this AM, but is down a bit on recheck Clinically stable at this point, will monitor closely. 08/25 Patient seen and examined, no acute overnight events, patient doing well, has some nausea responding well to IV Zofran. Still n.p.o. Amylase lipase trending down nicely. WBC count slightly elevated today. However the patient' s liver function tests continue to trend down. Plan for surgery likely tomorrow. Pertinent ROS: Denies headache, dizziness Denies chest pain, palpitations Denies cough or shortness of breath much improved abdominal pain, and nausea - Constitutional Vitals: Vital Signs Temp Pulse Resp BP Pulse Ox 97.8 F 78 16 103/61 96 08/25/18 11:18 08/25/18 04:00 08/25/18 11:18 08/25/18 11:18 08/25/18 11:18 Period Temp Pulse Resp BP Sys/Barnes Pulse Ox Last 24 Hr 97.3 F-98.9 F 72-80 16-18 101-125/55-79 94-96 Intake and Output 08/24/18 08/25/18 08/25/18 21:59 05:59 13:59 Intake Total 1050 / 1050 50 / 50 Output Total 750 / 750 250 / 250 200 / 200 Balance 300 / 300 -200 / -200 -200 / -200 Weight 179 lb Intake & Output: Intake & Output 08/24/18 08/25/18 08/25/18 21:59 05:59 13:59 Intake Total 1050 / 1050 50 / 50 Output Total 750 / 750 250 / 250 200 / 200 Balance 300 / 300 -200 / -200 -200 / -200 Weight 179 lb Intake: IV 1050 / 1050 50 / 50 Dextrose 5%-1/2Ns W/20Meq KCl 1 1000 / 1000 ,000 ml @ 84 mls/hr IV .[id number] [facility] Rx#:[id number] Zosyn 3.375 gm In Dextrose 5% 50 / 50 50 / 50 in Water 50 ml @ 100 mls/hr IV Q6H [facility] Rx#:[id number] Oral 0 / 0 Output: Void Amount 750 / 750 250 / 250 200 / 200 Other: Urine Appearance Clear Urine Color Dark Yellow Urine Odor Normal # Voids 1 Exam: Constitutional; Afebrile, cooperative, alert, not in distress. Eyes- No icterus, , No periorbital swelling Ears- Ext ear normal, hearing normal to conversation. Neck- Midline trachea, supple Respiratory system: Air Entry equal on both sides, No crackles or wheezing, no rhonchi. CVS- Rate rhythm regular, S1,S2 heard, no gallop, no rub. 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 Medical - PN: Obj Da - Labs CBC & Chem 7: 08/25/18 05:10 08/25/18 05:10 Labs: Abnormal Lab Results 08/25/18 08/25/18 08/25/18 05:10 05:10 05:10 WBC 15.7 H RBC 3.98 L Hgb 10.7 L Hct 32.7 L RDW 15.9 H Gran % 83.0 H Lymph % (Auto) 9.4 L Gran # 13.0 H Riley # (Auto) 1.1 H Sodium 131 L Glucose Uric Acid 1.5 L Calcium 8.2 L Total Bilirubin 1.3 H Direct Bilirubin 0.5 H GGT 230 H AST 95 H ALT 212 H Alkaline Phosphatase 580 H Lactate Dehydrogenase Albumin 2.6 L Albumin/Globulin Ratio 0.8 L Amylase 137 H Lipase 92 H Urine Ketones Urine RBC Urine Bacteria 08/24/18 08/24/18 08/24/18 10:18 05:28 05:28 WBC RBC Hgb Hct RDW Gran % Lymph % (Auto) Gran # Riley # (Auto) Sodium Glucose 109 H Uric Acid 1.3 L Calcium Total Bilirubin 2.1 H 3.2 H Direct Bilirubin 1.1 H 2.4 H GGT 346 H AST 201 H 239 H ALT 311 H 332 H Alkaline Phosphatase 723 H 813 H Lactate Dehydrogenase 253 H Albumin Albumin/Globulin Ratio 0.9 L Amylase 1122 H Lipase 1429 H Urine Ketones Urine RBC Urine Bacteria 08/24/18 08/23/18 08/23/18 05:28 09:23 04:22 WBC 13.7 H RBC Hgb 11.9 L Hct RDW 16.0 H Gran % 80.5 H Lymph % (Auto) 11.7 L Gran # 11.0 H Riley # (Auto) 1.0 H Sodium Glucose Uric Acid Calcium Total Bilirubin Direct Bilirubin GGT AST ALT Alkaline Phosphatase Lactate Dehydrogenase Albumin Albumin/Globulin Ratio Amylase 2249 H Lipase 4640 H Urine Ketones 5/tr A Urine RBC 2 H Urine Bacteria Few A 08/23/18 08/23/18 08/23/18 02:50 02:50 02:50 WBC 15.2 H RBC Hgb Hct RDW 15.6 H Gran % 82.3 H Lymph % (Auto) 12.1 L Gran # 12.5 H Riley # (Auto) Sodium Glucose 156 H Uric Acid Calcium Total Bilirubin 1.8 H Direct Bilirubin GGT AST 260 H ALT 287 H Alkaline Phosphatase 730 H Lactate Dehydrogenase Albumin Albumin/Globulin Ratio 0.9 L Amylase Lipase 94677 H Urine Ketones Urine RBC Urine Bacteria Meds: Medications Famotidine (Pepcid) 20 mg IV Q12 [facility] Last Admin: 08/25/18 08:41 Dose: 20 mg Hydromorphone HCl (Dilaudid) 0.5 mg IV Q2HP PRN PRN Reason: PAIN LEVEL > 6 Last Admin: 08/25/18 03:25 Dose: 0.5 mg Piperacillin Sod/Tazobactam (Sod 3.375 gm/ Dextrose) 50 mls @ 100 mls/hr IV Q6H [facility] Last Admin: 08/25/18 05:34 Dose: 100 mls/hr Potassium Chloride/Dextrose/Sod Cl (Dextrose 5%-1/2ns W/20meq Kcl) 1,000 mls @ 120 mls/hr IV .[id number] [facility] Naloxone HCl (Narcan) 0.1 mg IV Q2MIN PRN PRN Reason: Opiate Reversal Ondansetron HCl (Zofran) 4 mg IV Q4HP PRN PRN Reason: Nausea And Vomiting Last Admin: 08/25/18 08:42 Dose: 4 mg Oxycodone/Acetaminophen (Percocet 5-325 Mg) 1 tab PO Q4HP PRN PRN Reason: PAIN LEVEL 3-6 Sodium Chloride (Saline Flush) 10 ml IV Q8 [facility] Last Admin: 08/25/18 05:34 Dose: Not Given Medical - PN: A/P - Time Spent With Patient Total time spent is greater than 50% in coordination of care (as documented) at patient's floor/unit and/or counseling patient: - Narrative A/P Narrative: A/P Acute Cholangitis Acute cholecystitis Acute pancreatitis Anxiety CA breast/ s/p chemo abnormal liver function test Plan continue to monitor IV zosyn to continue, cultures neg so far GI and SUrgery consulted, s/p ercp, LFT, amylase and lipase trending down. IV fluids NPO for now anticipate surgery (cholecystectomy tomorrow) IV dilaudid for pain management DVT hep sq Diet npo Full code. Medical - PN: Qual - VTE Deep Vein Thrombosis/Pulmonary Embolism Present on Admission: No
[2018-08-25] MEDS: DEXTROSE 5%-1/2NS W/20MEQ KCL 1,000 ML IV SCH ×2 (13:24→21:08)
[2018-08-25] MEDS ORDERED: ONDANSETRON 4 MG/2 ML VIAL ONE (15:50)
[2018-08-25] MEDS ORDERED: MIDAZOLAM 5 MG/5 ML VIAL ONE (15:50)
[2018-08-25] MEDS ORDERED: PROPOFOL 200 MG/20 ML VIAL IV ONE (15:50)
[2018-08-25] MEDS ORDERED: DEXAMETHASONE 10 MG/ML VIAL ONE (15:50)
[2018-08-25] MEDS ORDERED: SUCCINYLCHOLINE 20 MG/ML ML IV ONE (15:50)
[2018-08-25] MEDS ORDERED: LIDOCAINE HCL/PF 100 MG/5 ML SYRINGE IV ONE (15:50)
[2018-08-25] MEDS ORDERED: fentaNYL 100 MCG/2 ML VIAL IV ONE (15:50)
[2018-08-25] MEDS ORDERED: VECURONIUM BROMIDE 10 MG VIAL IV ONE (15:50)
[2018-08-25] MEDS ORDERED: MEPERIDINE 25 MG/ML SYRINGE IV PRN (17:18)
[2018-08-25] MEDS ORDERED: ACETAMINOPHEN 1,000 MG/100 ML BOTTLE IV ONE (17:18)
[2018-08-25] MEDS ORDERED: METOPROLOL TARTRATE 5 MG/5 ML VIAL IV PRN (17:18)
[2018-08-25] MEDS ORDERED: ePHEDrine 50 MG/ML AMPUL IV PRN (17:18)
[2018-08-25] MEDS ORDERED: METHOCARBAMOL 1,000 MG/10 ML VIAL IV PRN (17:18)
[2018-08-25] MEDS ORDERED: IPRATROPIUM/ALBUTEROL 3 ML AMPUL.NEB NEB PRN (17:18)
[2018-08-25] MEDS ORDERED: FLUMAZENIL 0.1 MG/ML ML IV PRN (17:18)
[2018-08-25] MEDS ORDERED: diphenhydrAMINE 50 MG/ML VIAL IV PRN (17:18)
[2018-08-25] MEDS ORDERED: ONDANSETRON 4 MG/2 ML VIAL IV PRN ×2 (17:18→20:11)
[2018-08-25] MEDS ORDERED: ATROPINE SULFATE 0.4 MG/ML VIAL IV PRN (17:18)
[2018-08-25] MEDS ORDERED: PROMETHAZINE 25 MG/ML VIAL IV PRN (17:18)
[2018-08-25] MEDS ORDERED: BENZOCAINE/MENTHOL 1 LOZENGE PO PRN (17:18)
[2018-08-25] MEDS ORDERED: PROMETHAZINE 25 MG/ML VIAL IM PRN (17:18)
[2018-08-25] MEDS ORDERED: NALOXONE HCL 0.4 MG/ML VIAL IV PRN ×2 (17:18→20:11)
[2018-08-25] MEDS ORDERED: HYDROmorphone 2 MG/ML VIAL IV PRN (17:18)
[2018-08-25] MEDS ORDERED: fentaNYL 100 MCG/2 ML VIAL IV PRN (17:18)
[2018-08-25] MEDS ORDERED: LACTATED RINGERS 1,000 ML IV SCH (17:30)
[2018-08-25] MEDS ORDERED: metroNIDAZOLE 500 MG/100 ML BAG IV ONE (17:53)
[2018-08-25] MEDS ORDERED: LIDOCAINE 1% 20 ML VIAL SQ ONE (18:57)
[2018-08-25] MEDS ORDERED: ROPIVACAINE HCL/PF 20 ML VIAL IJ ONE (18:58)
[2018-08-25] MEDS ORDERED: FUROSEMIDE 20 MG/2 ML VIAL IV ONE ×2 (19:32→19:53)
--- NOTE | 2018-08-25 20:06 | Brief Operative Note ---
Date of procedure: 08/25/18 Pre-op diagnosis: calculous cholecystitis; gallstone pancreatitis resolved Post-op diagnosis: same Procedure: Laparoscopic cholecystectomy Grafts/Implants: No Anesthesia: GETA Findings: Inflamed gallbladder with thickened wall. Complications: none Surgeon: Leeann Reyes Estimated blood loss (cc): 40 Specimens Removed/Pathology: other (gallbladder) Condition: stable Disposition: PACU
[2018-08-25] MEDS ORDERED: DEXTROSE 5%-1/2NS W/20MEQ KCL 1,000 ML IV SCH (20:11)
[2018-08-25] MEDS: metroNIDAZOLE 500 MG/100 ML BAG IV SCH (21:43)
[2018-08-26] MEDS ORDERED: metroNIDAZOLE 500 MG/100 ML BAG IV SCH
[2018-08-26] MEDS: HYDROmorphone 2 MG/ML VIAL IV PRN ×3 (01:24→17:04)
[2018-08-26] MEDS: PIPERACILLIN SODIUM/TAZOBACTAM 3.375 GM in DEXTROSE 5% IN WATER 50 ML IV SCH ×4 (01:52→17:45)
[2018-08-26 05:37] LABS: Basophils # (Auto) 0 K/mcL (0.0-0.3); Basophils % (Auto) 0 % (0.0-2.0); Eosinophils # (Auto) 0 K/mcL (0.0-0.7); Eosinophils % (Auto) 0 % (0.0-7.0); Granulocytes % (Auto) 90.3 % (38.0-78.0); Lymphocytes # (Auto) 1.1 K/mcL (1.5-4.8); Lymphocytes % (Auto) 6.8 % (15.5-49.0); Mean Corpuscular HGB Conc 32.6 g/dL (31.0-36.0); Mean Corpuscular Hemoglobin 26.8 pg (26.0-34.0); Monocytes # (Auto) 0.5 K/mcL (0.1-0.9); Monocytes % (Auto) 2.9 % (1.0-12.0); Platelet Count 371 K/mcL (140-440); RBC 3.93 M/mcL (4.00-5.20); Red Cell Distribution Width 15.8 % (11.5-14.5)
[2018-08-26 05:41] LABS: ALT/SGPT 160 U/l (0-40); Albumin 2.7 gm/dL (3.2-5.2); Albumin/Globulin Ratio 0.8 (1.0-2.3); Alkaline Phosphatase 467 U/L (39-117); Bilirubin,Direct 0.4 mg/dL (0.0-0.3); Blood Urea Nitrogen 7 mg/dl (6-20); Gamma Glutamyl Transpeptidase 180 U/L (5-36); Uric Acid 1.8 mg/dL (2.5-8.0)
[2018-08-26 05:45] LABS: Amylase 36 U/L (28-100); Lipase 26 U/L (7-60)
[2018-08-26] MEDS: 0.9 % SODIUM CHLORIDE 10 ML SYRINGE IV SCH ×3 (05:46→23:38)
[2018-08-26] MEDS: metroNIDAZOLE 500 MG/100 ML BAG IV SCH ×3 (06:37→23:37)
--- NOTE | 2018-08-26 08:04 | General Surgery Progress Note ---
Surgical - Auxillary Note - Subjective Patient Information: Note initiated : 08/26/18 at 7:57 am Service Date, if different from initiated Date: [] Patient: Ciara Del Toro 62 y/o F admitted on 08/23/18 for Abd Pain. Chief Complaint: Patient resting in bed. C/O throat pain from NGT (placed at surgery). Medicated once for pain. Denies nausea or emesis. NGT output 250cc over night. Vital Signs Temp Pulse Resp BP Pulse Ox 97.3 F 69 18 107/67 96 08/26/18 07:14 08/26/18 04:13 08/26/18 07:14 08/26/18 07:14 08/26/18 07:37 Period Temp Pulse Resp BP Sys/Barnes Pulse Ox Last 24 Hr 97.3 F-98.0 F 69-102 14-23 103-159/61-81 94-98 Intake and Output 08/25/18 08/26/18 08/26/18 21:59 05:59 13:59 Intake Total 1999 / 1999 150 / 150 Output Total 470 / 470 1737 / 1737 Balance 1530 / 1530 -1587 / -1587 Weight 187 lb 4.8 oz PE: No distress. HEENT: sclera white. membranes moist. Chest: clear bilaterally. No rales or wheezes. CV: regular rhythm and rate. ABD: soft, non tender to palpation in mid epigastric area. Mild RUQ tenderness as expected post op. HOSEA drain with serosanguineous output, more serous. This morning, then immediately postop. Incisions is intact without erythema or discharge. : Roque catheter with clear yellow urine. Extremities: Warm, no cyanosis. CBC and Chem 7 08/26/18 04:21 08/26/18 04:21 Bilirubin, Amylase, and lipase normal. A/P: Status post laparoscopic cholecystectomy for acalculous cholecystitis. Gallstone pancreatitis, status post ERCP with sphincterotomy; resolved. Patient did well overnight. Urine output has been good. We will DC Roque catheter. Concern for postoperative ileus prompted bleeding of NG tube. At the time of surgery. Patient has not had significant output. NG tube is very irritating. We will trial clamping and if no high residuals or symptoms of nausea can DC NG tube. Leukocytosis: Continue IV antibiotics for now.
[2018-08-26] MEDS: FAMOTIDINE/PF 20 MG/2 ML VIAL IV SCH ×2 (08:16→19:05)
--- NOTE | 2018-08-26 08:42 | XRay Report ---
CLINICAL INFORMATION: ng tube placemnt, post op COMPARISON: 08/24/2018 FINDINGS: Small hiatal hernia again noted. Cardiomediastinal silhouette is, otherwise, normal for technique and position. NG tube tip overlies the mid gastric body. Right diaphragm is mildly elevated. Mild bibasilar airspace disease has increased likely a combination of scarring and atelectasis. No significant effusion IMPRESSION: Mild bibasilar atelectasis superimposed upon right basilar scarring. Interpreted and Authenticated by: Lio Lynch 08/26/18
--- NOTE | 2018-08-26 11:42 | Internal Med Progress Note ---
Medical - PN: Subj Patient information: Note initiated : 08/26/18 at 11:40 am Service Date, if different from initiated Date: [] Patient: Ciara Del Toro 62 y/o F admitted on 08/23/18 for Abd Pain. Chief Complaint: [] post sphincterotomy and stone fragment removal this admission. Pancreatitis and cholecystitis Interval history: post lap cholecystectomy last PM. states passes stool. no nausea. had NGT and taylor out and now eating ice chips and diet advancing. Pain is minimal. Pt says "I am tough" Also post 5 months chemo and had right mastectomy for hir 2 pos breast cancer followed by radiation in 2016 and 2017. - Constitutional Vitals: Vital Signs Temp Pulse Resp BP Pulse Ox 98.2 F 69 16 109/74 96 08/26/18 11:22 08/26/18 04:13 08/26/18 11:22 08/26/18 11:22 08/26/18 11:22 Period Temp Pulse Resp BP Sys/Barnes Pulse Ox Last 24 Hr 97.3 F-98.2 F 69-102 14-23 107-159/61-81 94-98 Intake and Output 08/25/18 08/26/18 08/26/18 21:59 05:59 13:59 Intake Total 1999 150 / 150 Output Total 470 / 470 1737 / 1737 700 / 700 Balance 1530 / 1530 -1587 / -1587 -700 / -700 Weight 187 lb 4.8 oz Intake & Output: Intake & Output 08/25/18 08/26/18 08/26/18 21:59 05:59 13:59 Intake Total 1999 150 / 150 Output Total 470 / 470 1737 / 1737 700 / 700 Balance 1530 / 1530 -1587 / -1587 -700 / -700 Weight 187 lb 4.8 oz Intake: IV 1999 150 / 150 Lactated Ringers 1,000 ml @ 20 1900 / 1900 mls/hr IV .Q24H [facility] Rx#: [id number] Zosyn 3.375 gm In Dextrose 5% 50 / 50 in Water 50 ml @ 100 mls/hr IV Q6H [facility] Rx#:[id number] Output: Gastric Drainage 200 / 200 400 / 400 Right Nare NG/OG 200 / 200 400 / 400 Drainage 50 / 50 62 / 62 Abdomen 50 / 50 62 / 62 Urine Catheter Amount 400 / 400 1475 / 1475 300 / 300 Estimated Blood Loss Other: Urine Appearance Clear Clear Clear Uretheral (Taylor) Clear Urine Color Dark Yellow Dark Yellow Uretheral (Taylor) Bright Yellow Urine Odor Normal General appearance: average body habitus, cooperative, no acute distress - Respiratory Respiratory exam: Present: normal respiratory exam, CTAB. Absent: accessory muscle use, rales, wheezes - Cardiovascular Cardiovascular exam: Present: normal rate and rhythm - Psychiatric Psychiatric exam: Present: normal affect, normal mood Additional comments: up beat and positive attitude Medical - PN: Obj Da - Labs CBC & Chem 7: 08/26/18 04:21 08/26/18 04:21 Labs: Abnormal Lab Results 08/26/18 08/26/18 08/25/18 04:21 04:21 05:10 WBC 16.4 H RBC 3.93 L Hgb 10.5 L Hct 32.2 L RDW 15.8 H Gran % 90.3 H Lymph % (Auto) 6.8 L Gran # 14.8 H Lymph # (Auto) 1.1 L Rabun # (Auto) Sodium Creatinine 0.5 L Glucose 142 H Uric Acid 1.8 L Calcium 8.4 L Total Bilirubin Direct Bilirubin 0.4 H GGT 180 H AST 65 H ALT 160 H Alkaline Phosphatase 467 H Lactate Dehydrogenase Albumin 2.7 L Albumin/Globulin Ratio 0.8 L Amylase 137 H Lipase 92 H 08/25/18 08/25/18 08/24/18 05:10 05:10 10:18 WBC 15.7 H RBC 3.98 L Hgb 10.7 L Hct 32.7 L RDW 15.9 H Gran % 83.0 H Lymph % (Auto) 9.4 L Gran # 13.0 H Lymph # (Auto) Rabun # (Auto) 1.1 H Sodium 131 L Creatinine Glucose Uric Acid 1.5 L Calcium 8.2 L Total Bilirubin 1.3 H 2.1 H Direct Bilirubin 0.5 H 1.1 H GGT 230 H AST 95 H 201 H ALT 212 H 311 H Alkaline Phosphatase 580 H 723 H Lactate Dehydrogenase Albumin 2.6 L Albumin/Globulin Ratio 0.8 L Amylase Lipase 08/24/18 08/24/18 08/24/18 05:28 05:28 05:28 WBC 13.7 H RBC Hgb 11.9 L Hct RDW 16.0 H Gran % 80.5 H Lymph % (Auto) 11.7 L Gran # 11.0 H Lymph # (Auto) Rabun # (Auto) 1.0 H Sodium Creatinine Glucose 109 H Uric Acid 1.3 L Calcium Total Bilirubin 3.2 H Direct Bilirubin 2.4 H GGT 346 H AST 239 H ALT 332 H Alkaline Phosphatase 813 H Lactate Dehydrogenase 253 H Albumin Albumin/Globulin Ratio 0.9 L Amylase 1122 H Lipase 1429 H Meds: Medications Famotidine (Pepcid) 20 mg IV Q12 [facility] Last Admin: 08/26/18 08:16 Dose: 20 mg Hydromorphone HCl (Dilaudid) 0.5 mg IV Q2HP PRN PRN Reason: PAIN LEVEL > 6 Last Admin: 08/26/18 06:11 Dose: 0.5 mg Metronidazole (Flagyl) 500 mg in 100 mls @ 100 mls/hr IV Q8H [facility] Last Admin: 08/26/18 06:37 Dose: 100 mls/hr Piperacillin Sod/Tazobactam (Sod 3.375 gm/ Dextrose) 50 mls @ 100 mls/hr IV Q6H [facility] Last Admin: 08/26/18 05:44 Dose: 100 mls/hr Potassium Chloride/Dextrose/Sod Cl (Dextrose 5%-1/2ns W/20meq Kcl) 1,000 mls @ 84 mls/hr IV .[id number] [facility] Last Admin: 08/25/18 21:08 Dose: 84 mls/hr Naloxone HCl (Narcan) 0.1 mg IV Q2MIN PRN PRN Reason: Opiate Reversal Ondansetron HCl (Zofran) 4 mg IV Q4HP PRN PRN Reason: Nausea And Vomiting Sodium Chloride (Saline Flush) 10 ml IV Q8 [facility] Last Admin: 08/26/18 05:46 Dose: Not Given Medical - PN: A/P - Time Spent With Patient Total time spent is greater than 50% in coordination of care (as documented) at patient's floor/unit and/or counseling patient: (1) Gallstone pancreatitis Status: Acute Assessment and plan: now s/p cholecystectomy and on course for rapid recovery. minimal alcohol use prior to admission historically Current Visit: Yes (2) Acute cholecystitis Status: Acute Assessment and plan: resolved surgically by Dr. Reyes Current Visit: Yes (3) Cholangitis Status: Acute Assessment and plan: treated with abx and resolving Current Visit: Yes (4) Common bile duct stone Status: Acute Assessment and plan: resolved by Dr. Lara ERCP Current Visit: Yes Medical - PN: Qual - VTE Deep Vein Thrombosis/Pulmonary Embolism Present on Admission: No
[2018-08-26] MEDS: DEXTROSE 5%-1/2NS W/20MEQ KCL 1,000 ML IV SCH ×3 (12:18→23:38)
[2018-08-26] MEDS ORDERED: KETOROLAC 15 MG/ML VIAL IV PRN (17:05)
[2018-08-27] MEDS: PIPERACILLIN SODIUM/TAZOBACTAM 3.375 GM in DEXTROSE 5% IN WATER 50 ML IV SCH ×4 (00:28→17:52)
[2018-08-27] MEDS: DEXTROSE 5%-1/2NS W/20MEQ KCL 1,000 ML IV SCH ×2 (02:24→11:05)
[2018-08-27] MEDS: metroNIDAZOLE 500 MG/100 ML BAG IV SCH ×2 (05:08→16:52)
[2018-08-27] MEDS: 0.9 % SODIUM CHLORIDE 10 ML SYRINGE IV SCH ×2 (06:33→14:06)
[2018-08-27 06:54] LABS: Amylase 45 U/L (28-100); Lipase 56 U/L (7-60)
[2018-08-27 06:56] LABS: ALT/SGPT 119 U/l (0-40); Albumin 2.7 gm/dL (3.2-5.2); Albumin/Globulin Ratio 0.8 (1.0-2.3); Alkaline Phosphatase 368 U/L (39-117); Bilirubin,Direct 0.3 mg/dL (0.0-0.3); Blood Urea Nitrogen 7 mg/dl (6-20); Gamma Glutamyl Transpeptidase 145 U/L (5-36); Uric Acid 2.3 mg/dL (2.5-8.0)
--- NOTE | 2018-08-27 07:11 | Operative Note ---
DATE OF OPERATION: 08/25/2018 PREOPERATIVE DIAGNOSIS: Calculus cholecystitis with gallstone pancreatitis, pancreatitis resolved. POSTOPERATIVE DIAGNOSIS: Calculus cholecystitis with gallstone pancreatitis, pancreatitis resolved. PROCEDURE PERFORMED: Laparoscopic cholecystectomy. SURGEON: Leeann Reyes MD ANESTHETIC: General endotracheal anesthesia. INDICATIONS FOR PROCEDURE: The patient is a 62-year-old woman who presented to the emergency department with upper abdominal pain 2 days ago. Her pain had been ongoing for about 3 days prior to admission. On evaluation in the emergency department, she was noted to have gallstone pancreatitis with a finding of stones and sludge in the distal common duct. The patient did have an elevated bilirubin on admission. On the afternoon of admission, she underwent ERCP by Dr. Vallecillo in GI medicine, in which time a sphincterotomy was done along with sweeping of the common duct to clear of any residual stones. The patient recovered from that over the subsequent 24 hours and had a decrease in enzyme levels. She is brought to the operating room today for laparoscopic cholecystectomy for remaining calculus cholecystitis. FINDINGS: The gallbladder was thickened and inflamed consistent with probable acute on chronic cholecystitis. The gallbladder was entered during dissection of the posterior wall and large pigmented stones were noted along with clear bile. DESCRIPTION OF PROCEDURE: After obtaining informed consent, the patient was taken to the operating room where a timeout was taken to confirm that she was here for the above-stated procedure. She had already been receiving antibiotics during her hospitalization. She was placed in the supine position on the operating table. General endotracheal anesthesia was induced. Roque catheter was inserted under sterile technique. The abdomen was then prepped and draped in sterile fashion. The abdomen was entered via supraumbilical incision using a scalpel. Dissection through subcutaneous tissues down to the fascia was performed bluntly with Metzenbaum scissors. Upon reaching the anterior abdominal wall fascia, this area was incised using electrocautery. The underlying peritoneum was identified and grasped with hemostats and then incised with scissors. Upon entering the peritoneal cavity the Tiffany trocar was placed. The abdomen was insufflated with carbon dioxide. Once pneumoperitoneum was established, three other trocars were placed through the abdominal wall under direct vision of laparoscope; a 5 mm port in the midepigastric region, 5 mm port in the right subcostal region, and a 5 mm port in the right mid abdomen. The gallbladder was identified in its normal position with changes of inflammation that appeared to be acute on chronic. The gallbladder wall was grasped at its fundus and retracted cephalad. The gallbladder wall was noted to be thick on grasping. The neck of the gallbladder was grasped and retracted laterally. Next, the peritoneum overlying the gallbladder was scored with electrocautery. Inflamed and fibrous tissue was noted surrounding the wall of the gallbladder. Blunt dissection was performed to dissect out the cystic duct. The cystic duct was dissected out along its length until seen clearly entering into the neck of the gallbladder. It was then doubly ligated with Hemoclips on the side to remain and singly ligated on the gallbladder side. Next, the cystic artery was identified and dissected out along its length until it was seen entering onto the wall of the gallbladder. It was doubly ligated with Hemoclips on the side to remain and singly ligated on the gallbladder side and divided between clips using scissors. The gallbladder was then dissected off the liver bed. There was a band of thick tissue extending from the liver bed onto the gallbladder wall. It was uncertain if this might have been a posterior artery versus just a fibrous band of inflammatory tissue and this was ligated with clips and divided between the clips. The gallbladder was removed from the liver bed using electrocautery. During this dissection, the posterior wall of the gallbladder was entered with spillage of clear bile and around the pigmented stones. Once the gallbladder was removed from the liver bed, it was placed in an endocatch device and removed via the Tiffany trocar site. The liver bed was inspected for any bile leak or bleeding; there was some oozing which was controlled with electrocautery. The cystic duct and cystic artery remnants were also inspected for any evidence of bile leak or bleeding; there was none. The right upper quadrant was then inspected and suctioned of any residual bile that was sitting in the area. The two stones that had fallen from the gallbladder was retrieved and removed from the abdomen. The right upper quadrant was then irrigated with copious amounts of saline and suctioned of the irrigant. A 10 flat Freddy drain was inserted into the abdomen and brought out through the right mid lateral trocar site with the drain left in the gallbladder fossa. After placement of the drain a piece of Surgicel was placed onto the gallbladder fossa and the area where there had been some oozing. No active bleeding was noted prior to placement of the Surgicel. The remaining trocars were removed from the abdominal wall while inspecting their sites for bleeding; there was none. Pneumoperitoneum was evacuated. Fascia at the Tiffany trocar site was closed with an 0 Vicryl suture in a running fashion. three remaining trocar sites were irrigated with saline. Local anesthetic and a mixture of 1% lidocaine and 0.5% ropivacaine in a 50/50 mixture was instilled into the skin and subcutaneous tissues at each of the trocar sites for help with postoperative pain control. The HOSEA drain was secured to the skin with a 3-0 nylon suture. The skin at each of the remaining trocar sites was closed with a 4-0 Monocryl suture in a running intracuticular fashion. Sponge and needle counts were correct at the end of the case. The patient tolerated the procedure well. There were no immediate complications. She was extubated in the operating room and transferred to PACU in stable condition. ESTIMATED BLOOD LOSS: 40 mL SPECIMEN: Gallbladder. URINE OUTPUT: 200 mL IV FLUIDS: 1900 mL RC:aidan Job ID: [id number] Doc ID: [id number] Leeann Reyes MD
[2018-08-27 07:18] LABS: Basophils # (Auto) 0 K/mcL (0.0-0.3); Basophils % (Auto) 0.1 % (0.0-2.0); Eosinophils # (Auto) 0.1 K/mcL (0.0-0.7); Eosinophils % (Auto) 0.8 % (0.0-7.0); Granulocytes % (Auto) 74.8 % (38.0-78.0); Lymphocytes # (Auto) 2.4 K/mcL (1.5-4.8); Lymphocytes % (Auto) 18.6 % (15.5-49.0); Mean Cell Volume 82.9 fL (80.0-100.0); Mean Corpuscular HGB Conc 32.6 g/dL (31.0-36.0); Monocytes # (Auto) 0.7 K/mcL (0.1-0.9); Monocytes % (Auto) 5.7 % (1.0-12.0); Platelet Count 433 K/mcL (140-440); RBC 3.92 M/mcL (4.00-5.20); Red Cell Distribution Width 15.8 % (11.5-14.5)
[2018-08-27] MEDS: FAMOTIDINE/PF 20 MG/2 ML VIAL IV SCH ×2 (09:36→21:59)
--- NOTE | 2018-08-27 14:20 | General Surgery Progress Note ---
Subjective Patient reports: feels better, pain is less, tolerating liquids well, flatus, bowel movement, afebrile Narrative: Note initiated : 08/27/18 at 2:18 pm Service Date, if different from initiated Date: [] Patient: Ciara Del Toro 62 y/o F admitted on 08/23/18 for Abd Pain. Chief Complaint: [ppatient is going well.. She showed steady improvement.. She is tolerating liquids without difficulty. She is having bowel movements and her incisional discomfort is much better. She is afebrile.. Liver transaminases are trending down and her amylase and lipase are normal.] Objective Temp Pulse Resp BP Pulse Ox 98.1 F 68 16 116/73 97 08/27/18 11:00 08/27/18 04:00 08/27/18 11:00 08/27/18 11:00 08/27/18 11:00 - Additional Data Intake & Output - Last 24 hours: Intake & Output 08/25/18 08/26/18 08/27/18 08/28/18 05:59 05:59 05:59 05:59 Intake Total 1200 / 1200 2200 / 2200 3050 / 3050 440 / 440 Output Total 1000 / 1000 2907 / 2907 2185 / 2185 1700 / 1700 Balance 200 / 200 -707 / -707 865 / 865 -1260 / -1260 Weight 179 lb 187 lb 4.8 oz 185 lb 8 oz - General physical appearance well developed, well nourished, no distress - Eyes PERRL, normal ocular movement - ENT normal pinna, normal nares, normal mucosa, no hearing loss, no congestion - Neck no masses, no venous distension - Respiratory normal expansion, normal respiratory effort, clear to auscultation - Cardiovascular Cardiovascular exam: Present: normal rate and rhythm, RRR, +S1, +S2. Absent: JVD, tachycardia - Abdomen tender (mild tenderness around the operative sites. Otherwise unremarkable; HOSEA drainage is serous) - Integumentary no rash, no growths, no abnormal pigmentation - Neurologic normal coordination, normal sensation - Musculoskeletal normal gait, normal posture - Psychiatric oriented to time, oriented to person, oriented to place, speech is normal, memory intact - Labs 08/27/18 04:48 08/27/18 04:48 Diabetes panel 08/27/18 Range/Units 04:48 Sodium 140 (133-145) mmol/L Potassium 3.8 (3.3-5.1) mmol/L Chloride 102 (96-108) mmol/L Carbon Dioxide 27 (22-30) mmol/L BUN 7 (6-20) mg/dl Creatinine 0.7 (0.6-1.1) mg/dl Glucose 90 (70-105) mg/dL Calcium 8.5 L (8.6-10.4) mg/dl AST 38 H (0-37) U/l ALT 119 H (0-40) U/l Alkaline Phosphatase 368 H (39-117) U/L Total Protein 6.3 (5.9-8.4) gm/dL Albumin 2.7 L (3.2-5.2) gm/dL Triglycerides 57 (<150) mg/dl Calcium panel 08/27/18 Range/Units 04:48 Calcium 8.5 L (8.6-10.4) mg/dl Phosphorus 2.8 (2.7-4.5) mg/dL Albumin 2.7 L (3.2-5.2) gm/dL Pituitary panel 08/27/18 Range/Units 04:48 Sodium 140 (133-145) mmol/L Potassium 3.8 (3.3-5.1) mmol/L Chloride 102 (96-108) mmol/L Carbon Dioxide 27 (22-30) mmol/L BUN 7 (6-20) mg/dl Creatinine 0.7 (0.6-1.1) mg/dl Glucose 90 (70-105) mg/dL Calcium 8.5 L (8.6-10.4) mg/dl Adrenal panel 08/27/18 Range/Units 04:48 Sodium 140 (133-145) mmol/L Potassium 3.8 (3.3-5.1) mmol/L Chloride 102 (96-108) mmol/L Carbon Dioxide 27 (22-30) mmol/L BUN 7 (6-20) mg/dl Creatinine 0.7 (0.6-1.1) mg/dl Glucose 90 (70-105) mg/dL Calcium 8.5 L (8.6-10.4) mg/dl Total Bilirubin 0.7 (0.0-1.0) mg/dL AST 38 H (0-37) U/l ALT 119 H (0-40) U/l Alkaline Phosphatase 368 H (39-117) U/L Total Protein 6.3 (5.9-8.4) gm/dL Albumin 2.7 L (3.2-5.2) gm/dL Assessment and Plan (1) Gallstone pancreatitis Status: Acute Current Visit: Yes (2) Acute cholecystitis Status: Acute Assessment and plan: Advanced to a GI soft diet. Saline lock IV.. Discontinue Flagyl Current Visit: Yes - Time Spent With Patient Total time spent is greater than 50% in coordination of care (as documented) at patient's floor/unit and/or counseling patient:
[2018-08-28] MEDS: PIPERACILLIN SODIUM/TAZOBACTAM 3.375 GM in DEXTROSE 5% IN WATER 50 ML IV SCH ×3 (00:07→11:37)
[2018-08-28] MEDS: 0.9 % SODIUM CHLORIDE 10 ML SYRINGE IV SCH ×3 (00:08→15:09)
[2018-08-28 05:30] LABS: Basophils # (Auto) 0 K/mcL (0.0-0.3); Basophils % (Auto) 0.3 % (0.0-2.0); Eosinophils # (Auto) 0.1 K/mcL (0.0-0.7); Eosinophils % (Auto) 0.9 % (0.0-7.0); Granulocytes % (Auto) 77.8 % (38.0-78.0); Lymphocytes # (Auto) 1.7 K/mcL (1.5-4.8); Lymphocytes % (Auto) 13.7 % (15.5-49.0); Mean Cell Volume 82.4 fL (80.0-100.0); Mean Corpuscular HGB Conc 32.7 g/dL (31.0-36.0); Mean Corpuscular Hemoglobin 26.9 pg (26.0-34.0); Monocytes # (Auto) 0.9 K/mcL (0.1-0.9); Monocytes % (Auto) 7.3 % (1.0-12.0); Platelet Count 409 K/mcL (140-440); RBC 3.96 M/mcL (4.00-5.20); Red Cell Distribution Width 15.4 % (11.5-14.5)
[2018-08-28 05:57] LABS: ALT/SGPT 86 U/l (0-40); Albumin 2.8 gm/dL (3.2-5.2); Albumin/Globulin Ratio 0.8 (1.0-2.3); Alkaline Phosphatase 315 U/L (39-117); Amylase 46 U/L (28-100); Bilirubin,Direct 0.2 mg/dL (0.0-0.3); Blood Urea Nitrogen 5 mg/dl (6-20); Gamma Glutamyl Transpeptidase 120 U/L (5-36); Lipase 53 U/L (7-60); Uric Acid 1.6 mg/dL (2.5-8.0)
[2018-08-28] MEDS: FAMOTIDINE/PF 20 MG/2 ML VIAL IV SCH (08:23)
--- NOTE | 2018-08-28 14:43 | General Surgery Progress Note ---
Subjective Patient reports: feels better, pain is less, tolerating liquids well, flatus, bowel movement, afebrile Narrative: Note initiated : 08/28/18 at 2:40 pm Service Date, if different from initiated Date: [] Patient: Ciara Del Toro 62 y/o F admitted on 08/23/18 for Abd Pain. Chief Complaint: [patient is doing well and does not have any complaints. She has tolerated full liquids without difficulty. She is having regular bowel movements. Her pain is totally controlled. Patient is stable for discharge] Objective Temp Pulse Resp BP Pulse Ox 97.4 F 75 14 117/74 96 08/28/18 12:00 08/28/18 12:00 08/28/18 12:00 08/28/18 12:00 08/28/18 12:00 - Additional Data Intake & Output - Last 24 hours: Intake & Output 08/26/18 08/27/18 08/28/18 08/29/18 05:59 05:59 05:59 05:59 Intake Total 2200 / 2200 3050 / 3050 1730 / 1730 50 / 50 Output Total 2907 / 2907 2185 / 2185 3430 / 3430 400 / 400 Balance -707 / -707 865 / 865 -1700 / -1700 -350 / -350 Weight 187 lb 4.8 oz 185 lb 8 oz 184 lb 11.2 oz - General physical appearance well developed, well nourished, no distress - Eyes PERRL, normal ocular movement - ENT normal pinna, normal nares, normal mucosa, no hearing loss, no congestion - Neck no masses, no bruits, trachea midline, no venous distension - Respiratory normal expansion, normal respiratory effort, clear to auscultation - Cardiovascular Cardiovascular exam: Present: normal rate and rhythm, RRR, +S1, +S2. Absent: JVD, tachycardia - Abdomen tender (minimal tenderness around port sites otherwise unremarkable abdominal exam), bowel sounds (present), surgical scars (none), masses (none) - Integumentary no rash, no growths, no abnormal pigmentation - Neurologic normal coordination, normal sensation - Musculoskeletal normal gait, normal posture - Psychiatric oriented to time, oriented to person, oriented to place, speech is normal, memory intact - Labs 08/28/18 04:05 08/28/18 04:05 Diabetes panel 08/28/18 Range/Units 04:05 Sodium 139 (133-145) mmol/L Potassium 3.6 (3.3-5.1) mmol/L Chloride 100 (96-108) mmol/L Carbon Dioxide 26 (22-30) mmol/L BUN 5 L (6-20) mg/dl Creatinine 0.6 (0.6-1.1) mg/dl Glucose 90 (70-105) mg/dL Calcium 8.6 (8.6-10.4) mg/dl AST 25 (0-37) U/l ALT 86 H (0-40) U/l Alkaline Phosphatase 315 H (39-117) U/L Total Protein 6.1 (5.9-8.4) gm/dL Albumin 2.8 L (3.2-5.2) gm/dL Triglycerides 56 (<150) mg/dl Calcium panel 08/28/18 Range/Units 04:05 Calcium 8.6 (8.6-10.4) mg/dl Phosphorus 4.0 (2.7-4.5) mg/dL Albumin 2.8 L (3.2-5.2) gm/dL Pituitary panel 08/28/18 Range/Units 04:05 Sodium 139 (133-145) mmol/L Potassium 3.6 (3.3-5.1) mmol/L Chloride 100 (96-108) mmol/L Carbon Dioxide 26 (22-30) mmol/L BUN 5 L (6-20) mg/dl Creatinine 0.6 (0.6-1.1) mg/dl Glucose 90 (70-105) mg/dL Calcium 8.6 (8.6-10.4) mg/dl Adrenal panel 08/28/18 Range/Units 04:05 Sodium 139 (133-145) mmol/L Potassium 3.6 (3.3-5.1) mmol/L Chloride 100 (96-108) mmol/L Carbon Dioxide 26 (22-30) mmol/L BUN 5 L (6-20) mg/dl Creatinine 0.6 (0.6-1.1) mg/dl Glucose 90 (70-105) mg/dL Calcium 8.6 (8.6-10.4) mg/dl Total Bilirubin 0.6 (0.0-1.0) mg/dL AST 25 (0-37) U/l ALT 86 H (0-40) U/l Alkaline Phosphatase 315 H (39-117) U/L Total Protein 6.1 (5.9-8.4) gm/dL Albumin 2.8 L (3.2-5.2) gm/dL Assessment and Plan (1) Gallstone pancreatitis Status: Resolved Assessment and plan: Resolved Current Visit: Yes (2) Acute cholecystitis Status: Acute Assessment and plan: Patient is stable for discharge. Follow-up in the office on September 13 Discharge medication Percocet 5/325 one every 4 hours as needed, #40, no refills Current Visit: Yes - Time Spent With Patient Total time spent is greater than 50% in coordination of care (as documented) at patient's floor/unit and/or counseling patient:
--- NOTE | 2018-08-28 15:29 | Discharge Summary ---
Medical - DS: Prov Patient information: Note initiated : 08/28/18 at 3:26 pm Service Date, if different from initiated Date: [] Patient: Ciara Del Toro 62 y/o F admitted on 08/23/18 for Abd Pain. Chief Complaint: [] Date of admission: 08/23/18 08:43 Discharge date: 08/28/18 Primary care physician: Tere Edouard Admitting clinician: Karma Hutchinson Attending physician on admission: Karma Hutchinson Consults: 08/23/18 06:54 Consult to Physician [CONS] Stat Comment: Consulting Provider: Lio Vallecillo Reason For Exam: Physician to Consult 08/23/18 06:55 Consult to Physician [CONS] Stat Comment: Consulting Provider: Karma Hutchinson Reason For Exam: Physician to Consult 08/23/18 06:58 Consult to Physician [CONS] Stat Comment: Consulting Provider: Leeann Reyes Reason For Exam: Physician to Consult 08/27/18 09:55 Consult to Physician [CONS] Routine Comment: Consulting Provider: Srikanth Fenton Reason For Exam: Physician to Consult Attending physician on discharge: Tacos Hicks Discharging clinician: Tacos Hicks Medical - DS: Meds - Discharge Medications Prescriptions: Ciprofloxacin [Cipro] 500 mg PO BID #6 tab oxyCODONE/APAP [Percocet 5-325 mg] 1 tab PO Q4HP PRN #40 tab PRN Reason: Pain Active and Home Medications: Home Medications Loratadine [Claritin] 10 mg PO DAILY 07/12/16 [History Confirmed 08/23/18 Last Taken 08/16/18] lorazepam 1 mg tablet 0.5 mg PO HSP PRN 08/17/18 [History Confirmed 08/23/18 Last Taken 08/22/18] omeprazole 20 mg capsule,delayed release 20 mg PO QDAY 08/17/18 [History Confirmed 08/23/18 Last Taken 08/16/18] trazodone 50 mg tablet 50 mg PO QDAY 08/17/18 [History Confirmed 08/23/18 Last Taken 08/21/18] oxyCODONE/APAP [Percocet 5-325 mg] 1 tab PO Q4HP PRN #40 tab 08/28/18 [Rx Last Taken Unknown] Medical - DS: Hosp Hospital course: Mr. Del Toro is a 62 year old F admitted with cholangitis, cholecystitis and pancreatitis and after initial antibiotics underwent cholecystectomy by Dr. Reyes on 08/25 and had a rapid recovery. Pt is passing stool and tolerating solid food. No nausea. Pain only intermittent. Pt had necrotic gallbladder so HOSEA drain in place and to remain till follow up with Dr. Fenton. Pt not having fevers but did on admission. Will treat with 3 more days ciprofloxacin 500mg bid. Pt had ERCP by Dr. Lara also and stone remove and sphincterotomy Discharge diagnosis: cholangitis Secondary discharge diagnosis: cholecystitis pancreatitis Breast Cancer Reason for admission: abdominal pain and vomiting Pertinent studies/significant findings: CBD stone Complications: none - Time Spent with Patient Total time spent providing and/or coordinating discharge services: Greater than 30 minutes Medical - DS: Exam - Constitutional Vitals: Vital Signs Temp Pulse Resp BP BP Pulse Ox 08/28/18 12:00 97.4 F 75 14 117/74 96 08/28/18 07:56 97.1 F 81 14 120/76 96 08/28/18 04:00 98.1 F 82 14 135/84 94 08/28/18 00:00 98.6 F 82 14 125/81 94 08/27/18 20:00 98.6 F 80 16 104/61 95 08/27/18 16:00 97.3 F 84 16 128/73 93 Intake and Output 08/28/18 08/28/18 08/28/18 05:59 13:59 21:59 Intake Total 400 / 400 100 / 100 Output Total 575 / 575 400 / 400 Balance -175 / -175 -300 / -300 Intake: IV 50 / 50 100 / 100 Zosyn 3.375 gm In Dextrose 5% 50 / 50 100 / 100 in Water 50 ml @ 100 mls/hr IV Q6H [facility] Rx#:[id number] Oral 350 / 350 Output: Void Amount 575 / 575 400 / 400 Other: Meal Breakfast Percent of Meal Consumed 100% Urine Appearance Clear Urine Color Light Lora Urine Odor Normal Stool Size Large Stool Color Brown Stool Consistency Soft Formed Liquid # Voids 1 # Bowel Movements 1 General appearance: average body habitus, cooperative, no no acute distress - Respiratory Respiratory exam: Present: normal respiratory exam, CTAB - Cardiovascular Cardiovascular exam: Present: normal rate and rhythm - GI/Abdominal GI/Abdominal exam: Present: soft, tenderness (mild ruq and mid epigastric) - Extremities Exam Extremities exam: Absent: calf tenderness, pedal edema - Psychiatric Psychiatric exam: Present: normal affect, normal mood. Absent: anxious - Skin Skin exam: Present: dry, warm Medical - DS: Data Labs on day of discharge: Labs from last 24 hours 08/28/18 08/28/18 08/28/18 04:05 04:05 04:05 WBC 12.7 H RBC 3.96 L Hgb 10.6 L Hct 32.6 L MCV 82.4 MCH 26.9 MCHC 32.7 RDW 15.4 H Plt Count 409 MPV 9.0 Gran % 77.8 Lymph % (Auto) 13.7 L [place] % (Auto) 7.3 Eos % (Auto) 0.9 Baso % (Auto) 0.3 Gran # 9.9 H Lymph # (Auto) 1.7 [place] # (Auto) 0.9 Eos # (Auto) 0.1 Baso # (Auto) 0 Sodium 139 Potassium 3.6 Chloride 100 Carbon Dioxide 26 Anion Gap 13.0 BUN 5 L Creatinine 0.6 GFR Calculation 99 Glucose 90 Uric Acid 1.6 L Calcium 8.6 Phosphorus 4.0 Magnesium 2.1 Total Bilirubin 0.6 Direct Bilirubin 0.2 GGT 120 H AST 25 ALT 86 H Alkaline Phosphatase 315 H Lactate Dehydrogenase 144 Total Protein 6.1 Albumin 2.8 L Globulin 3.3 Albumin/Globulin Ratio 0.8 L Triglycerides 56 Amylase 46 Lipase 53 Medical - DS: A/P - Patient/Caregiver Discharge Instructions Activity: increase activity as tolerated Diet: Low Fat (for 1 week) Additional Instructions: Empty HOSEA drain once daily. Leave in place until follow up appointment. Office visit on September 06. March shower. Pat dry. Prescriptions: oxyCODONE/APAP [Percocet 5-325 mg] 1 tab PO Q4HP PRN #40 tab PRN Reason: Pain - Problem Maintenance (1) Gallstone pancreatitis Status: Resolved (2) Acute cholecystitis Status: Resolved (3) Cholangitis Status: Acute (4) Common bile duct stone Status: Resolved - Follow up Plan Follow up with: Srikanth Fenton MD [Physician] - 09/06/18 9:00 am Disposition: Home, Self-Care Prognosis: Good Rehab Potential: Good I certify that the patient requires SNF services: No Overall status at discharge: patient is progressing back to baseline Medical - DS: Qual - VTE Deep Vein Thrombosis/Pulmonary Embolism Present on Admission: No
--- NOTE | 2018-08-29 13:30 | Surgical Pathology Report ---
HISTOLOGY SPECIMEN MICROSCOPIC DIAGNOSIS GALLBLADDER, CHOLECYSTECTOMY: -- ACUTE AND CHRONIC CHOLECYSTITIS WITH CHOLELITHIASIS. (RLF:djf) PROCEDURAL IMPRESSION Cholecystitis. GROSS DESCRIPTION Received in formalin labeled with the patient information, is an 8 x 2.5 x 2.8 cm white-reed to purple-reed gallbladder. The serosal surface is smooth and glistening. There are two openings on the hepatic bed, each 0.6 cm in diameter. There is a 0.6 cm in diameter black stone lodged within the duct. The duct is not clipped. The lumen contains a minimal amount of viscous red-brown fluid and four additional black stones ranging in size from 0.4 to 0.6 cm in greatest dimension. The mucosa is reed-brown and velvety with green patchy areas. The wall is firm and up to 0.9 cm thick. Clay Worker sections submitted in one cassette. (STS:sln) Electronically Signed by: Gely Aguilar M.D.
== END 2018-08-28 16:05 | disposition home or self-care (01) | DRG 418 ==
LOC: ED 02:16 → MEDSUR 08:43
PROVIDERS: ADMIT Internal Medicine; ATTEND Internal Medicine
PROC: ERCPPAP (ICD-10-PCS; 2018-08-23 15:00)